=== PATIENT | female | born 1945 | race Caucasian/White ===

== ENCOUNTER 2017-01-18 17:53 | Emergency (ER) | payer MEDICARE | END 2017-01-18 18:58 | disposition left against medical advice (07) | LOC: JP.ED 17:53 | DX: Z53.21 Procedure and treatment not carried out due to patient leaving prior to being seen by health care provider (principal) | CPT/HCPCS: 99281 ==

== ENCOUNTER 2017-01-19 06:10 | Emergency (ER) | payer MEDICARE ==
[2017-01-19 06:29] VITALS: BP 134/95
[2017-01-19] MEDS ORDERED: Sodium Chloride 0.9% 10 ML Syringe FLUSH PRN (07:16)
[2017-01-19] MEDS ORDERED: Ondansetron 4 MG/2 ML SDV IVPUSH ONE (07:18)
[2017-01-19] MEDS ORDERED: Lactated Ringers 1,000 ML IV ONE (07:18)
[2017-01-19] MEDS ORDERED: HYDROmorphone 0.5 MG/0.5 ML Syringe IVPUSH ONE (07:18)
--- NOTE | 2017-01-19 07:24 | EDM.PDOC ---
ED HPI GENERAL MEDICAL PROBLEM - General Chief Complaint: Gastrointestinal Problem Stated Complaint: RECTAL BLEEDING Time Seen by Provider: 01/19/17 07:05 Source of Information: Reports: Patient, RN Notes Reviewed History Limitations: Reports: No Limitations - History of Present Illness INITIAL COMMENTS - FREE TEXT/NARRATIVE: 71-year-old female presents emergency department today with complaint of bright red blood per stool she states this is been going on for about 24 hours does pass dark clots as well as bright red blood in the stool has felt lightheaded like is going to pass out, states she had a colonoscopy about 4 years ago was told was unremarkable does have a history of hemorrhoids abd Pain Score (Numeric/FACES): 6 - Related Data Allergies Allergy/AdvReac Type Severity Reaction Status Date / Time Iodinated Contrast- Oral and Allergy Intermediate Rash Verified 01/19/17 06:34 IV Dye [Iodinated Contrast Media - IV Dye] simvastatin Allergy Confusion Verified 01/19/17 06:34 Home Meds: Home Meds Escitalopram [Lexapro] 20 mg PO DAILY 01/06/13 [History] Esomeprazole [NexIUM] 40 mg PO DAILY PRN 01/06/13 [History] Fluticasone/Salmeterol [Advair 100-50 Diskus] 1 puff INH DAILY 01/06/13 [History ] Lisinopril [Prinivil] 10 mg PO DAILY 01/06/13 [History] Multivitamin [Multiple Vitamins] 1 tab PO DAILY 01/06/13 [History] Pramipexole [Mirapex] 2 mg PO BEDTIME 01/06/13 [History] traZODone 200 mg PO BEDTIME 01/06/13 [History] Aspirin [Halfprin] 81 mg PO DAILY 09/13/14 [History] traMADol [Ultram] 100 mg PO BID 10/26/15 [History] Doxepin HCl [Doxepin] 10 mg PO BEDTIME 01/19/17 [History] Vitamin A [Vitamin A] 8,000 unit PO DAILY 01/19/17 [History] Past Medical History HEENT History: Reports: Impaired Vision Cardiovascular History: Reports: High Cholesterol, Hypertension, SOB on Exertion Other Cardiovascular History: states she has had surface blood clots and was told not to worry about them Respiratory History: Reports: Bronchitis, Recurrent, COPD, Pneumonia, Recurrent , Sleep Apnea, SOB Gastrointestinal History: Reports: GERD, Irritable Bowel Syndrome [place] History: Reports: Musculoskeletal History: Reports: Back Pain, Chronic, Osteoarthritis Other Musculoskeletal History: siatic pain. Sciatic injection by Dr. Myrtle Langston [facility] 10 days ago. glut. max problems Other Neuro History: Restless leg syndrome Psychiatric History: Reports: Anxiety, Depression Oncologic (Cancer) History: Reports: Squamous Cell Carcinoma, Uterine - Infectious Disease History Infectious Disease History: Reports: Chicken Pox, Measles, Mumps - Past Surgical History HEENT Surgical History: Reports: Adenoidectomy, Tonsillectomy GI Surgical History: Reports: Appendectomy, Cholecystectomy, Colonoscopy Female Surgical History: Reports: Hysterectomy, Oophorectomy Neurological Surgical History: Reports: Lumbar Spine Social & Family History - Family History Family Medical History: Noncontributory - Tobacco Use Smoking Status *Q: Current Every Day Smoker Years of Tobacco use: 55 Packs/Tins Daily: 1.5 Used Tobacco, but Quit: No Month Tobacco Last Used: may Second Hand Smoke Exposure: Yes - Caffeine Use Caffeine Use: Reports: Coffee - Alcohol Use Days Per Week of Alcohol Use: 1 Number of Drinks Per Day: 2 Total Drinks Per Week: 2 - Recreational Drug Use Recreational Drug Use: No Drug Use in Last 12 Months: No - Living Situation & Occupation Living situation: Reports: Alone Occupation: Employed ED ROS GENERAL - Review of Systems Review Of Systems: See Below Constitutional: Reports: Weakness. Denies: Fever, Chills HEENT: Reports: No Symptoms Respiratory: Reports: No Symptoms Cardiovascular: Reports: No Symptoms GI/Abdominal: Reports: Abdominal Pain, Bloody Stool, Nausea, Vomiting. Denies: Hematemesis : Reports: No Symptoms Musculoskeletal: Reports: No Symptoms Skin: Reports: No Symptoms Neurological: Reports: No Symptoms ED EXAM, GI/ABD - Physical Exam Exam: See Below Exam Limited By: No Limitations General Appearance: Alert, WD/WN, No Apparent Distress Head: Atraumatic, Normocephalic Neck: Normal Inspection, Supple, Non-Tender, Full Range of Motion Respiratory/Chest: No Respiratory Distress, Lungs Clear, Normal Breath Sounds, No Accessory Muscle Use Cardiovascular: Regular Rate, Rhythm, No Murmur GI/Abdominal Exam: Normal Bowel Sounds, Soft, Non-Tender, No Organomegaly, No Distention, No Abnormal Bruit Rectal (Female) Exam: Normal Exam, Bloody Stool, Hemorrhoids. No: Mass, Perirectal Abscess Course - Vital Signs Last Recorded V/S: Last Vital Signs Temp 98.8 F 01/19/17 06:27 Pulse 106 H 01/19/17 06:27 Resp 18 01/19/17 06:27 BP 134/95 H 01/19/17 06:27 Pulse Ox 94 L 01/19/17 06:27 - Orders/Labs/Meds Orders: Active Orders 24 hr Category Date Time Status Peripheral IV Care [RC] . DIRECTED Care 01/19/17 07:17 Active RED BLOOD CELLS LP [BBK] Stat Lab 01/19/17 07:32 Results TYPE AND SCREEN [BBK] Stat Lab 01/19/17 07:32 Results Sodium Chloride 0.9% [Saline Flush] Med 01/19/17 07:16 Active 10 ml FLUSH ASDIRECTED PRN Peripheral IV Insertion Adult [OM.PC] Routine Oth 01/19/17 07:18 Ordered Peripheral IV Insertion Adult [OM.PC] Urgent Oth 01/19/17 07:16 Ordered Medication Orders Sodium Chloride (Saline Flush) 10 ml FLUSH ASDIRECTED PRN PRN Reason: Keep Vein Open Labs: Laboratory Tests 01/19/17 01/19/17 01/19/17 Range/Units 07:32 07:32 07:32 WBC 11.7 H (4.5-11.0) K/uL RBC 5.24 (3.30-5.50) M/uL Hgb 16.5 H D (12.0-15.0) g/dL Hct 48.7 H (36.0-48.0) % MCV 93 (80-98) fL MCH 32 H (27-31) pg MCHC 34 (32-36) % Plt Count 207 (150-400) K/uL Neut % (Auto) 74 H (36-66) % Lymph % (Auto) 18 L (24-44) % [place] % (Auto) 7 H (2-6) % Eos % (Auto) 1 L (2-4) % Baso % (Auto) 0 (0-1) % PT 11.7 (9.5-12.0) sec INR 1.09 (0.80-1.20) Sodium 136 L (140-148) mmol/L Potassium 3.7 (3.6-5.2) mmol/L Chloride 100 (100-108) mmol/L Carbon Dioxide 27 (21-32) mmol/L Anion Gap 12.7 (5.0-14.0) mmol/L BUN 11 (7-18) mg/dL Creatinine 0.7 (0.6-1.0) mg/dL Est Cr Clr Drug Dosing 63.65 mL/min Estimated GFR (MDRD) > 60 (>60) Glucose 135 H (74-106) mg/dL Calcium 8.7 (8.5-10.1) mg/dL Total Bilirubin 0.6 D (0.2-1.0) mg/dL AST 24 (15-37) U/L ALT 31 (12-78) U/L Alkaline Phosphatase 56 (46-116) U/L Total Protein 7.1 (6.4-8.2) g/dL Albumin 3.5 (3.4-5.0) g/dL Globulin 3.6 H (2.3-3.5) g/dL Albumin/Globulin Ratio 1.0 L (1.2-2.2) Blood Type Gel Antibody Screen Crossmatch 01/19/17 Range/Units 07:32 WBC (4.5-11.0) K/uL RBC (3.30-5.50) M/uL Hgb (12.0-15.0) g/dL Hct (36.0-48.0) % MCV (80-98) fL MCH (27-31) pg MCHC (32-36) % Plt Count (150-400) K/uL Neut % (Auto) (36-66) % Lymph % (Auto) (24-44) % [place] % (Auto) (2-6) % Eos % (Auto) (2-4) % Baso % (Auto) (0-1) % PT (9.5-12.0) sec INR (0.80-1.20) Sodium (140-148) mmol/L Potassium (3.6-5.2) mmol/L Chloride (100-108) mmol/L Carbon Dioxide (21-32) mmol/L Anion Gap (5.0-14.0) mmol/L BUN (7-18) mg/dL Creatinine (0.6-1.0) mg/dL Est Cr Clr Drug Dosing mL/min Estimated GFR (MDRD) (>60) Glucose (74-106) mg/dL Calcium (8.5-10.1) mg/dL Total Bilirubin (0.2-1.0) mg/dL AST (15-37) U/L ALT (12-78) U/L Alkaline Phosphatase (46-116) U/L Total Protein (6.4-8.2) g/dL Albumin (3.4-5.0) g/dL Globulin (2.3-3.5) g/dL Albumin/Globulin Ratio (1.2-2.2) Blood Type O POSITIVE Gel Antibody Screen Negative Crossmatch See Detail Meds: Medications Generic Name Dose Route Start Last Admin Trade Name Freq PRN Reason Stop Dose Admin Sodium Chloride 10 ml 01/19/17 07:16 Saline Flush FLUSH ASDIRECTED PRN Keep Vein Open Discontinued Medications Generic Name Dose Route Start Last Admin Trade Name Freq PRN Reason Stop Dose Admin Hydromorphone HCl 0.5 mg 01/19/17 07:18 01/19/17 07:43 Dilaudid IVPUSH 01/19/17 07:19 0.5 mg ONETIME ONE Administration Lactated Ringer's 1,000 mls @ 999 mls/hr 01/19/17 07:18 01/19/17 07:38 Ringers, Lactated IV 01/19/17 08:18 999 mls/hr BOLUS ONE Administration Ondansetron HCl 4 mg 01/19/17 07:18 01/19/17 07:39 Zofran IVPUSH 01/19/17 07:19 4 mg ONETIME ONE Administration Departure - Departure Time of Disposition: 08:57 Disposition: Home, Self-Care 01 Condition: Good Clinical Impression: Blood in stool - Discharge Information Referrals: PCP,None [Primary Care Provider] - Forms: ED Department Discharge Additional Instructions: Please report to the outpatient surgery center for plan colonoscopy and EGD on of this week with Dr. Padilla please call return to the emergency department with development of new or worsening symptoms - My Orders Last 24 Hours: My Active Orders 01/19/17 07:16 Sodium Chloride 0.9% [Saline Flush] 10 ml FLUSH ASDIRECTED PRN Peripheral IV Insertion Adult [OM.PC] Urgent 01/19/17 07:17 Peripheral IV Care [RC] . DIRECTED 01/19/17 07:18 Peripheral IV Insertion Adult [OM.PC] Routine 01/19/17 07:32 RED BLOOD CELLS LP [BBK] Stat TYPE AND SCREEN [BBK] Stat - Assessment/Plan Last 24 Hours: My Active Orders 01/19/17 07:16 Sodium Chloride 0.9% [Saline Flush] 10 ml FLUSH ASDIRECTED PRN Peripheral IV Insertion Adult [OM.PC] Urgent 01/19/17 07:17 Peripheral IV Care [RC] . DIRECTED 01/19/17 07:18 Peripheral IV Insertion Adult [OM.PC] Routine 01/19/17 07:32 RED BLOOD CELLS LP [BBK] Stat TYPE AND SCREEN [BBK] Stat Plan: Assessment Acuity = acute Site and laterality = bright red blood in stool comp came patient with known history of dyslipidemia, hypertension and COPD Etiology = unknown etiology Manifestations = dizziness now resolved Location of injury = Home Lab values = WBC elevated 11.7 consistent leukocytosis, hemoglobin stable 16.5 Plan Called and discussed the case with general surgery Dr. Padilla he agreed to do colonoscopy and EGD this week she is set up for I gave her the option of hospital admission versus outpatient treatment she elected to outpatient, she will return to the emergency department with any development of new symptoms colonoscopy prep provided Patient was in agreement with the plan all questions were answered, they were instructed to return to the emergency department or call for worsening symptoms. This note was dictated using [employer] voice recognition software please call with any questions.
== END 2017-01-19 09:31 | disposition home or self-care (01) ==
LOC: JP.ED 06:10
DX: K92.1 Melena (principal); I10 Essential (primary) hypertension; E78.00 Pure hypercholesterolemia, unspecified; J44.9 Chronic obstructive pulmonary disease, unspecified; K21.9 Gastro-esophageal reflux disease without esophagitis; M19.90 Unspecified osteoarthritis, unspecified site; F32.9 Major depressive disorder, single episode, unspecified; F17.210 Nicotine dependence, cigarettes, uncomplicated; Z85.828 Personal history of other malignant neoplasm of skin; Z90.49 Acquired absence of other specified parts of digestive tract; Z98.890 Other specified postprocedural states; Z90.710 Acquired absence of both cervix and uterus; Z85.42 Personal history of malignant neoplasm of other parts of uterus; Z79.82 Long term (current) use of aspirin; Z79.899 Other long term (current) drug therapy; Z88.8 Allergy status to other drugs, medicaments and biological substances; Z91.041 Radiographic dye allergy status
CPT/HCPCS: 36415; 80053; 85025; 85610; 86850; 86900; 86901; 86920; 86922; 96361; 96374; 96375; 99284; J1170; J2405; J7120

== ENCOUNTER 2017-01-21 14:58 | Emergency (ER) | payer MEDICARE ==
[2017-01-21 15:23] VITALS: BP 136/66
[2017-01-21] MEDS: Sodium Chloride 0.9% 10 ML Syringe FLUSH PRN ×2 (17:00→17:14)
[2017-01-21] MEDS ORDERED: Sodium Chloride 0.9% 80 ML IV SCH (17:00)
[2017-01-21] MEDS ORDERED: Iopamidol 612 MG/ML 100 ML Bottle IV SCH (17:00)
--- NOTE | 2017-01-21 18:26 | EDM.PDOC ---
ED HPI GENERAL MEDICAL PROBLEM - General Chief Complaint: Gastrointestinal Problem Stated Complaint: NO BM;HAD BLEEDING Time Seen by Provider: 01/21/17 15:30 Source of Information: Reports: Patient, Family History Limitations: Reports: No Limitations - History of Present Illness INITIAL COMMENTS - FREE TEXT/NARRATIVE: 71-year-old female who has had persistent rectal bleeding for the past several days. She is scheduled for a colonoscopy in 2 days from now. She had a colonoscopy 4 years ago which was normal. She had a normal hemoglobin at 16 2 days ago. She continues to have abdominal discomfort, a bloated sensation, and intermittent pain. She has not had a bowel movement for one week and it is worrying her, however she has not eaten anything for the past 4 days. Location: Reports: Abdomen Severity: Moderate Associated Symptoms: Reports: Loss of Appetite. Denies: Cough, Diaphoresis, Malaise, Nausea/Vomiting, Shortness of Breath - Related Data Allergies Allergy/AdvReac Type Severity Reaction Status Date / Time red dye Allergy Unknown Hives Verified 01/21/17 12:04 pravastatin Allergy Other Verified 01/21/17 12:04 simvastatin Allergy Confusion Verified 01/19/17 06:34 Home Meds: Home Meds Escitalopram [Lexapro] 20 mg PO DAILY 01/06/13 [History] Esomeprazole [NexIUM] 40 mg PO DAILY 01/06/13 [History] Fluticasone/Salmeterol [Advair 100-50 Diskus] 1 puff INH BID 01/06/13 [History] Lisinopril [Prinivil] 10 mg PO DAILY 01/06/13 [History] Multivitamin [Multiple Vitamins] 1 tab PO DAILY 01/06/13 [History] Pramipexole [Mirapex] 1 mg PO BEDTIME 01/06/13 [History] traZODone 200 mg PO BEDTIME 01/06/13 [History] Aspirin [Halfprin] 81 mg PO DAILY 09/13/14 [History] traMADol [Ultram] 100 mg PO BID 10/26/15 [History] Doxepin HCl [Doxepin] 10 mg PO BEDTIME 01/19/17 [History] Vitamin A [Vitamin A] 8,000 unit PO DAILY 01/19/17 [History] Albuterol Sulfate [Proair Hfa] 1 - 2 puff IH QID PRN 01/21/17 [History] Albuterol [Proventil Neb Soln] 3 ml IH QID PRN 01/21/17 [History] Alendronate [Fosamax] 35 mg PO WEEKLY 01/21/17 [History] Cholecalciferol (Vitamin D3) [Vitamin D3] 2,000 unit PO DAILY 01/21/17 [History] Rosuvastatin [Crestor] 5 mg PO DAILY 01/21/17 [History] Past Medical History HEENT History: Reports: Impaired Vision Cardiovascular History: Reports: High Cholesterol, Hypertension, SOB on Exertion Other Cardiovascular History: states she has had surface blood clots and was told not to worry about them Respiratory History: Reports: Bronchitis, Recurrent, COPD, Pneumonia, Recurrent , Sleep Apnea, SOB Gastrointestinal History: Reports: GERD, Irritable Bowel Syndrome [employer] History: Reports: Musculoskeletal History: Reports: Back Pain, Chronic, Osteoarthritis Other Musculoskeletal History: siatic pain. Sciatic injection by Dr. Myrtle Langston [facility] 10 days ago. glut. max problems Other Neuro History: Restless leg syndrome Psychiatric History: Reports: Anxiety, Depression Oncologic (Cancer) History: Reports: Squamous Cell Carcinoma, Uterine - Infectious Disease History Infectious Disease History: Reports: Chicken Pox, Measles, Mumps - Past Surgical History HEENT Surgical History: Reports: Adenoidectomy, Tonsillectomy GI Surgical History: Reports: Appendectomy, Cholecystectomy, Colonoscopy Female Surgical History: Reports: Hysterectomy, Oophorectomy Neurological Surgical History: Reports: Lumbar Spine Social & Family History - Family History Family Medical History: Noncontributory - Tobacco Use Smoking Status *Q: Current Every Day Smoker Years of Tobacco use: 55 Packs/Tins Daily: 1.5 Used Tobacco, but Quit: No Month Tobacco Last Used: may Second Hand Smoke Exposure: Yes - Caffeine Use Caffeine Use: Reports: Coffee - Alcohol Use Days Per Week of Alcohol Use: 1 Number of Drinks Per Day: 2 Total Drinks Per Week: 2 - Recreational Drug Use Recreational Drug Use: No Drug Use in Last 12 Months: No - Living Situation & Occupation Living situation: Reports: Alone Occupation: Employed ED ROS GENERAL - Review of Systems Review Of Systems: See Below Constitutional: Denies: Fever, Chills HEENT: Reports: No Symptoms Respiratory: Denies: Shortness of Breath Cardiovascular: Denies: Chest Pain GI/Abdominal: Reports: Abdominal Pain, Bloody Stool, Decreased Appetite, Hematochezia : Reports: No Symptoms Skin: Reports: No Symptoms Neurological: Reports: No Symptoms Psychiatric: Reports: No Symptoms ED EXAM, GI/ABD - Physical Exam Exam: See Below Exam Limited By: No Limitations General Appearance: Alert, No Apparent Distress Eyes: Bilateral: Normal Appearance (No jaundice) Respiratory/Chest: No Respiratory Distress, Lungs Clear Cardiovascular: Regular Rate, Rhythm GI/Abdominal Exam: Normal Bowel Sounds, Soft, Tender (Some tenderness to palpation across the periumbilical area but no guarding or rebound or focal tenderness) Rectal (Female) Exam: Bloody Stool, Other (Digital exam revealed no significant rectal stool. There was soft maroon stool present, no digital palpable masses.) . No: Fecal Impaction, Mass Course - Vital Signs Last Recorded V/S: Last Vital Signs Temp 98.0 F 01/21/17 15:46 Pulse 96 01/21/17 15:46 Resp 15 01/21/17 15:46 BP 136/66 01/21/17 15:46 Pulse Ox 90 L 01/21/17 15:46 - Orders/Labs/Meds Labs: Laboratory Tests 01/21/17 Range/Units 16:33 WBC 8.1 (4.5-11.0) K/uL RBC 4.68 (3.30-5.50) M/uL Hgb 14.8 (12.0-15.0) g/dL Hct 44.1 (36.0-48.0) % MCV 94 (80-98) fL MCH 32 H (27-31) pg MCHC 34 (32-36) % Plt Count 214 (150-400) K/uL Neut % (Auto) 57 (36-66) % Lymph % (Auto) 33 (24-44) % [place] % (Auto) 8 H (2-6) % Eos % (Auto) 3 (2-4) % Baso % (Auto) 1 (0-1) % Meds: Medications Discontinued Medications Generic Name Dose Route Start Last Admin Trade Name Freq PRN Reason Stop Dose Admin Sodium Chloride 80 mls @ 3 mls/sec 01/21/17 17:00 01/21/17 17:14 Normal Saline IV 3 mls/sec ASDIRECTED FRANCIA Administration Iopamidol 92 ml 01/21/17 17:00 01/21/17 17:14 Isovue-300 (61%) IV 92 ml . DIRECTED FRANCIA Administration Sodium Chloride 10 ml 01/21/17 16:56 01/21/17 17:14 Saline Flush FLUSH 10 ml ASDIRECTED PRN Administration Keep Vein Open - Re-Assessments/Exams Free Text/Narrative Re-Assessment/Exam: 01/21/17 18:26 CBC was rechecked her hemoglobin is now 14. We did do a CT scan of the abdomen and pelvis with IV contrast and there was no significant findings. She is to complete the prep as planned and get her colonoscopy on which is about 36 hours from now. She'll return sooner if worsening or concerns. Departure - Departure Time of Disposition: 18:39 Disposition: Home, Self-Care 01 Condition: Good Clinical Impression: Abdominal pain, Rectal bleed - Discharge Information Instructions: Abdominal Pain, Adult, [id number] Referrals: PCP,None [Primary Care Provider] - Forms: ED Department Discharge Care Plan Goals: Finish your bowel preparation for your colonoscopy as planned. Return sooner if significantly increased bleeding or other concerns.
== END 2017-01-21 18:38 | disposition home or self-care (01) ==
LOC: JP.ED 14:58
DX: K62.5 Hemorrhage of anus and rectum (principal); R10.9 Unspecified abdominal pain; I10 Essential (primary) hypertension; E78.00 Pure hypercholesterolemia, unspecified; J44.9 Chronic obstructive pulmonary disease, unspecified; G47.30 Sleep apnea, unspecified; K21.9 Gastro-esophageal reflux disease without esophagitis; M19.90 Unspecified osteoarthritis, unspecified site; F32.9 Major depressive disorder, single episode, unspecified; F17.210 Nicotine dependence, cigarettes, uncomplicated; Z85.828 Personal history of other malignant neoplasm of skin; Z85.42 Personal history of malignant neoplasm of other parts of uterus; Z90.49 Acquired absence of other specified parts of digestive tract; Z98.890 Other specified postprocedural states; Z90.710 Acquired absence of both cervix and uterus; Z79.899 Other long term (current) drug therapy; Z88.8 Allergy status to other drugs, medicaments and biological substances; Z91.048 Other nonmedicinal substance allergy status
CPT/HCPCS: 36415; 74177; 85025; 99285; J7030; J7050; Q9967; 99284

== ENCOUNTER 2017-01-23 08:34 | Day surgery (SDC) | payer MEDICARE ==
[2017-01-23] MEDS ORDERED: Sodium Chloride 0.9% 1,000 ML IV SCH (09:00)
[2017-01-23] MEDS ORDERED: fentaNYL 100 MCG/2 ML SDV ONE (09:25)
[2017-01-23] MEDS ORDERED: Midazolam 1 MG/ML 2 ML SDV ONE (09:25)
[2017-01-23] MEDS ORDERED: Propofol 200 MG/20 ML SDV ONE (09:25)
[2017-01-23 11:16] VITALS: BP 120/77
--- NOTE | 2017-01-23 12:22 | OR ---
DATE OF PROCEDURE: 01/23/2017 PROCEDURE: 1. EGD. 2. Colonoscopy. FINDINGS: 1. Very mild gastritis (biopsied using cold biopsy forceps). 2. Inflammation of the GE junction, consistent with reflux disease (biopsied in all 4 quadrants using cold biopsy forceps). 3. Diverticulosis, mild, limited to sigmoid colon. 4. No etiology of the blood but most likely this was diverticular bleeding. RISKS: Risks, benefits, alternatives, limitations including, but not limited to infection, bleeding, and perforation were explained to the patient and wished to proceed. PREOPERATIVE DIAGNOSIS: Gastrointestinal bleeding. POSTOPERATIVE DIAGNOSIS: Gastrointestinal bleeding. PROCEDURE IN DETAIL: The patient was placed in left lateral decubitus position. The EGD scope was introduced, advanced atraumatically to the 2nd part of the duodenum. No ulceration was noted. The scope was brought back into the stomach and the patient had very mild gastritis, with the antrum was biopsied for H. pylori evaluation and the etiology of the gastritis. On retroflex, there was not a hiatal hernia. No other abnormalities in the stomach. The GE junction showed inflammation consistent with reflux disease. This was biopsied multiple times using cold biopsy forceps. The esophagus was normal. Digital rectal exam was performed, showed mild external hemorrhoids. The scope was introduced, advanced atraumatically to the ileocecal valve. The scope was brought back to the ascending, transverse, descending colon, and retroflexed. No polyps. No masses. No old or new blood. The patient had diverticulosis which was described as mild. The patient tolerated the procedure well. Jose Eduardo Padilla MD /[id number]
== END 2017-01-23 11:24 | disposition home or self-care (01) ==
LOC: JP.SDS 08:34
PROVIDERS: ATTEND Surgery
DX: K29.50 Unspecified chronic gastritis without bleeding (principal); K57.30 Diverticulosis of large intestine without perforation or abscess without bleeding; K64.4 Residual hemorrhoidal skin tags; K21.9 Gastro-esophageal reflux disease without esophagitis; F32.9 Major depressive disorder, single episode, unspecified; J44.9 Chronic obstructive pulmonary disease, unspecified; I10 Essential (primary) hypertension; G47.30 Sleep apnea, unspecified; E78.00 Pure hypercholesterolemia, unspecified; Z90.49 Acquired absence of other specified parts of digestive tract; F17.210 Nicotine dependence, cigarettes, uncomplicated; Z88.8 Allergy status to other drugs, medicaments and biological substances; Z98.890 Other specified postprocedural states; Z90.710 Acquired absence of both cervix and uterus; F41.9 Anxiety disorder, unspecified
CPT/HCPCS: 43239; 45378; 88305; J2250; J2704; J3010; J7040

== ENCOUNTER 2017-08-20 15:07 | Emergency (ER) | payer MEDICARE ==
[2017-08-20 15:22] VITALS: BP 103/75
--- NOTE | 2017-08-20 16:15 | EDM.PDOC ---
ED HPI GENERAL MEDICAL PROBLEM - General Chief Complaint: Back Pain or Injury Stated Complaint: HAVING ALOT OF PAIN Time Seen by Provider: 08/20/17 15:50 Source of Information: Reports: Patient History Limitations: Reports: No Limitations - History of Present Illness INITIAL COMMENTS - FREE TEXT/NARRATIVE: 72-year-old female with chronic back pain, received an injection week ago and it did not work like it typically does. She has sharp pains radiating from the lower back to the right sacroiliac area. It's making it difficult to sleep. No lower extremity neuropathy, no fevers or chills or redness at the injection site. Severity: Moderate Worsens with: Reports: Movement Associated Symptoms: Reports: No Other Symptoms Right Lower Back Pain Score (Numeric/FACES): 9 - Related Data Allergies Allergy/AdvReac Type Severity Reaction Status Date / Time pravastatin Allergy Other Verified 08/20/17 15:34 simvastatin Allergy Confusion Verified 08/20/17 15:34 Home Meds: Home Meds Escitalopram [Lexapro] 20 mg PO DAILY 01/06/13 [History] Fluticasone/Salmeterol [Advair 100-50 Diskus] 1 puff INH BID 01/06/13 [History] Lisinopril [Prinivil] 10 mg PO DAILY 01/06/13 [History] Multivitamin [Multiple Vitamins] 1 tab PO DAILY 01/06/13 [History] Pramipexole [Mirapex] 1 mg PO BEDTIME 01/06/13 [History] traZODone 200 mg PO BEDTIME 01/06/13 [History] Aspirin [Halfprin] 81 mg PO DAILY 09/13/14 [History] traMADol [Ultram] 100 mg PO BID 10/26/15 [History] Doxepin HCl [Doxepin] 10 mg PO BEDTIME 01/19/17 [History] Vitamin A 8,000 unit PO DAILY 01/19/17 [History] Albuterol Sulfate [Proair Hfa] 1 - 2 puff IH QID PRN 01/21/17 [History] Albuterol [Proventil Neb Soln] 3 ml IH QID PRN 01/21/17 [History] Alendronate [Fosamax] 35 mg PO WEEKLY 01/21/17 [History] Cholecalciferol (Vitamin D3) [Vitamin D3] 2,000 unit PO DAILY 01/21/17 [History] Rosuvastatin [Crestor] 5 mg PO ASDIRECTED 01/21/17 [History] Past Medical History HEENT History: Reports: Impaired Vision Cardiovascular History: Reports: High Cholesterol, Hypertension, SOB on Exertion Other Cardiovascular History: states she has had surface blood clots and was told not to worry about them Respiratory History: Reports: Bronchitis, Recurrent, COPD, Pneumonia, Recurrent , Sleep Apnea, SOB Gastrointestinal History: Reports: Colon Polyp, GERD, Irritable Bowel Syndrome Genitourinary History: Reports: None 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 Sciatic injection by Dr. Myrtle Langston [facility] 10 days ago. glut. max problems Neurological History: Reports: Migraines, Other (See Below) Other Neuro History: Restless leg syndrome Psychiatric History: Reports: Anxiety, Depression Oncologic (Cancer) History: Reports: Squamous Cell Carcinoma, Uterine - Infectious Disease History Infectious Disease History: Reports: Chicken Pox - Past Surgical History Head Surgeries/Procedures: Reports: None HEENT Surgical History: Reports: Adenoidectomy, Tonsillectomy Cardiovascular Surgical History: Reports: None Respiratory Surgical History: Reports: None GI Surgical History: Reports: Appendectomy, Cholecystectomy, Colonoscopy Female Surgical History: Reports: Hysterectomy, Oophorectomy Neurological Surgical History: Reports: Lumbar Spine Musculoskeletal Surgical History: Reports: None Oncologic Surgical History: Reports: None Dermatological Surgical History: Reports: Skin Biopsy Social & Family History - Family History Family Medical History: Noncontributory - Tobacco Use Smoking Status *Q: Current Every Day Smoker Years of Tobacco use: 45 Packs/Tins Daily: 1.5 - Caffeine Use Caffeine Use: Reports: Coffee - Recreational Drug Use Recreational Drug Use: No - Living Situation & Occupation Living situation: Reports: Alone Occupation: Employed ED ROS GENERAL - Review of Systems Review Of Systems: See Below Constitutional: Denies: Fever, Chills Respiratory: Denies: Shortness of Breath Cardiovascular: Denies: Chest Pain GI/Abdominal: Denies: Nausea, Vomiting Neurological: Denies: Paresthesia ED EXAM,LOWER BACK PAIN/INJURY - Physical Exam Exam: See Below Exam Limited By: No Limitations General Appearance: Alert, No Apparent Distress Respiratory/Chest: No Respiratory Distress, Lungs Clear Cardiovascular: Regular Rate, Rhythm Back Exam: Paraspinal Tenderness (Very uncomfortable to palpation over the right paralumbar area, no asymmetry, redness or bruising is seen. Some increased pain with forward bending at the waist and rotation) Course - Vital Signs Last Recorded V/S: Last Vital Signs Temp 97.6 F 08/20/17 15:24 Pulse 92 08/20/17 15:24 Resp 16 08/20/17 15:24 BP 103/75 08/20/17 15:24 Pulse Ox 92 L 08/20/17 15:24 - Re-Assessments/Exams Free Text/Narrative Re-Assessment/Exam: 08/21/17 08:49 She has another appointment coming up in 6 days for a recheck. She'll be placed on 50 mg of prednisone daily for the next 3-6 days and was given 6 hydrocodone to use for extra pain control. Encouraged to increase activity as tolerated and return if worsening. Departure - Departure Time of Disposition: 16:25 Disposition: Home, Self-Care 01 Condition: Good Clinical Impression: Acute exacerbation of chronic low back pain - Discharge Information Instructions: Back Pain, Adult, [id number] Referrals: James Simmons MD [Primary Care Provider] - Forms: ED Department Discharge Care Plan Goals: Continue your current medications, increase activity as tolerated and follow up as scheduled. Take 5 pills of prednisone with food daily for the next 3-6 days along with Vicodin for extra pain control as prescribed. Return anytime if worsening or concerns.
== END 2017-08-20 16:25 | disposition home or self-care (01) ==
LOC: JP.ED 15:07
DX: G89.29 Other chronic pain (principal); M54.5 Low back pain; Z88.8 Allergy status to other drugs, medicaments and biological substances; Z79.899 Other long term (current) drug therapy; I10 Essential (primary) hypertension; F17.210 Nicotine dependence, cigarettes, uncomplicated
CPT/HCPCS: 99283

== ENCOUNTER 2017-10-14 13:17 | Inpatient (IN) | payer MEDICARE ==
[2017-10-14] MEDS ORDERED: Albuterol/Ipratropium 3.0-0.5 MG/3 ML Neb Soln NEB ONE (13:36)
[2017-10-14] MEDS ORDERED: Acetaminophen 500 MG Tab PO PRN (13:44)
[2017-10-14] MEDS ORDERED: Lactated Ringers 1,000 ML IV SCH (13:45)
[2017-10-14] MEDS ORDERED: Azithromycin 500 MG in Sodium Chloride 0.9% 250 ML IV SCH ×2 (13:45→14:00)
[2017-10-14] MEDS ORDERED: cefTRIAXone 2 GM in Sodium Chloride 0.9% 50 ML IV SCH ×4 (13:45)
--- NOTE | 2017-10-14 13:48 | EDM.PDOC ---
ED HPI GENERAL MEDICAL PROBLEM - General Chief Complaint: Respiratory Problem Stated Complaint: TROUBLE BREATHING, HEADACHE Time Seen by Provider: 10/14/17 13:24 Source of Information: Reports: Patient History Limitations: Reports: No Limitations - History of Present Illness INITIAL COMMENTS - FREE TEXT/NARRATIVE: Hx of COPD, smoker- not feeling well for the last 3 days; she has been feeling punky. Cough, fever, shortness of breath. She has been using her albuterol at home, she is on oxygen 3 L at HS. Onset: Gradual (3 days) Quality: Reports: Pressure Severity: Moderate Improves with: Reports: Rest. Denies: None Worsens with: Reports: Movement. 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 Treatments - Related Data Allergies Allergy/AdvReac Type Severity Reaction Status Date / Time pravastatin Allergy Other Verified 10/14/17 14:06 simvastatin Allergy Confusion Verified 10/14/17 14:06 Home Meds: Home Meds Escitalopram [Lexapro] 20 mg PO DAILY 01/06/13 [History] Fluticasone/Salmeterol [Advair 100-50 Diskus] 1 puff INH BID 01/06/13 [History] Lisinopril [Prinivil] 10 mg PO DAILY 01/06/13 [History] Multivitamin [Multiple Vitamins] 1 tab PO DAILY 01/06/13 [History] Pramipexole [Mirapex] 1 mg PO BEDTIME 01/06/13 [History] traZODone 200 mg PO BEDTIME 01/06/13 [History] Aspirin [Halfprin] 81 mg PO DAILY 09/13/14 [History] Vitamin A 8,000 unit PO DAILY 01/19/17 [History] Albuterol Sulfate [Proair Hfa] 1 - 2 puff IH QID PRN 01/21/17 [History] Albuterol [Proventil Neb Soln] 3 ml IH QID PRN 01/21/17 [History] Cholecalciferol (Vitamin D3) [Vitamin D3] 2,000 unit PO DAILY 01/21/17 [History] Rosuvastatin [Crestor] 5 mg PO BEDTIME 01/21/17 [History] oxyCODONE 1 tab PO Q4H PRN 07/03/18 [History] Past Medical History HEENT History: Reports: Impaired Vision Cardiovascular History: Reports: High Cholesterol, Hypertension, SOB on Exertion Other Cardiovascular History: states she has had surface blood clots and was told not to worry about them Respiratory History: Reports: Bronchitis, Recurrent, COPD, Pneumonia, Recurrent , Sleep Apnea, SOB Gastrointestinal History: Reports: Colon Polyp, GERD, Irritable Bowel Syndrome Genitourinary History: Reports: None [employer] History: Reports: , Spontaneous Musculoskeletal History: Reports: Back Pain, Chronic, Osteoarthritis Other Musculoskeletal History: siatic pain. Sciatic injection by Dr. Myrtle Langston, [place] 10 days ago. glut. max problems Neurological History: Reports: Migraines, Other (See Below) Other Neuro History: Restless leg syndrome Psychiatric History: Reports: Anxiety, Depression Oncologic (Cancer) History: Reports: Squamous Cell Carcinoma, Uterine - Infectious Disease History Infectious Disease History: Reports: Chicken Pox - Past Surgical History Head Surgeries/Procedures: Reports: None HEENT Surgical History: Reports: Adenoidectomy, Tonsillectomy Cardiovascular Surgical History: Reports: None Respiratory Surgical History: Reports: None GI Surgical History: Reports: Appendectomy, Cholecystectomy, Colonoscopy Female Surgical History: Reports: Hysterectomy, Oophorectomy Neurological Surgical History: Reports: Lumbar Spine Musculoskeletal Surgical History: Reports: None Oncologic Surgical History: Reports: None Dermatological Surgical History: Reports: Skin Biopsy Social & Family History - Family History Family Medical History: Noncontributory - Caffeine Use Caffeine Use: Reports: Coffee - Living Situation & Occupation Living situation: Reports: Alone Occupation: Employed ED ROS GENERAL - Review of Systems Review Of Systems: See Below Constitutional: Reports: Fever HEENT: Reports: Throat Pain Respiratory: Reports: Shortness of Breath, Pleuritic Chest Pain, Cough, Sputum Cardiovascular: Reports: No Symptoms. Denies: Chest Pain Endocrine: Reports: Fatigue GI/Abdominal: Reports: No Symptoms : Reports: No Symptoms Musculoskeletal: Reports: No Symptoms Skin: Reports: No Symptoms Neurological: Reports: Headache Psychiatric: Reports: No Symptoms Hematologic/Lymphatic: Reports: No Symptoms Immunologic: Reports: No Symptoms ED EXAM, GENERAL - Physical Exam Exam: See Below Exam Limited By: No Limitations General Appearance: Alert, Mild Distress Throat/Mouth: Normal Inspection, Normal Oropharynx, No Airway Compromise Head: Atraumatic, Normocephalic Neck: Normal Inspection, Full Range of Motion Respiratory/Chest: Decreased Breath Sounds, Rhonchi, Wheezing (exp) Cardiovascular: No Murmur, Tachycardia GI/Abdominal: Normal Bowel Sounds, Soft, Non-Tender Extremities: Normal Inspection, Normal Range of Motion, Non-Tender Neurological: Alert, Oriented, Normal Cognition Psychiatric: Normal Affect, Normal Mood Skin Exam: Warm, Dry, Intact Course - Vital Signs Last Recorded V/S: Last Vital Signs Temp 99.5 F 10/14/17 15:30 Pulse 100 10/14/17 15:30 Resp 20 10/14/17 15:30 BP 84/58 L 10/14/17 15:30 Pulse Ox 90 L 10/14/17 15:30 - Orders/Labs/Meds Orders: Active Orders 24 hr Category Date Time Status Chest 1V Frontal [CR] Stat Exams 10/14/17 13:44 Taken CULTURE BLOOD [BC] Urgent Lab 10/14/17 13:55 Received CULTURE BLOOD [BC] Urgent Lab 10/14/17 14:00 Received Blood Culture x2 Reflex Set [OM.PC] Urgent Oth 10/14/17 13:40 Ordered Medication Orders Acetaminophen (Tylenol) 650 mg PO Q4H PRN PRN Reason: Pain (Mild 1-3)/fever Albuterol (Proventil Neb Soln) 2.5 mg NEB Q4H PRN PRN Reason: Shortness Of Breath/wheezing Albuterol/Ipratropium (Duoneb 3.0-0.5 Mg/3 Ml) 3 ml NEB QIDRT FRANCIA Last Admin: 10/14/17 15:35 Dose: Not Given Aspirin (Halfprin) 81 mg PO DAILY [facility] Azithromycin (Zithromax) 500 mg PO DAILY [facility] Benzonatate (Tessalon Perles) 100 mg PO TID PRN PRN Reason: Cough Escitalopram Oxalate (Lexapro) 20 mg PO DAILY [facility] Guaifenesin/Codeine Phosphate (Robitussin Ac) 10 ml PO Q4H PRN PRN Reason: Cough Ceftriaxone Sodium 2 gm/ (Sodium Chloride) 50 mls @ 100 mls/hr IV Q24H [facility] Ibuprofen (Motrin) 600 mg PO Q6H PRN PRN Reason: Pain/Fever Lisinopril (Prinivil) 10 mg PO DAILY [facility] Magnesium Hydroxide (Milk Of Magnesia) 30 ml PO Q12H PRN PRN Reason: Constipation Methylprednisolone Sodium Succinate (Solu-Medrol) 62.5 mg IVPUSH ONETIME ONE Stop: 10/14/17 23:01 Nicotine (Habitrol) 21 mg TRDERM DAILY FRANCIA Non-Formulary Medication (Fluticasone/Salmeterol [Advair 100-50]) 1 puff INH BID FRANCIA Non-Formulary Medication (Pramipexole [Mirapex]) 1 mg PO BEDTIME FRANCIA Non-Formulary Medication (Rosuvastatin [Crestor]) 5 mg PO BEDTIME FRANCIA Non-Formulary Medication (Trazodone [Trazodone]) 200 mg PO BEDTIME FRANCIA Ondansetron HCl (Zofran Odt) 4 mg PO Q6H PRN PRN Reason: Nausea able to take PO Oxycodone HCl (Oxycodone) mg PO Q4H PRN PRN Reason: Pain Polyethylene Glycol (Miralax) 17 gm PO DAILY PRN PRN Reason: Constipation Prednisone (Prednisone) 20 mg PO BIDAC FRANCIA Senna/Docusate Sodium (Senna Plus) 1 tab PO BID PRN PRN Reason: Constipation Labs: Laboratory Tests 10/14/17 10/14/17 10/14/17 Range/Units 13:40 13:55 13:55 WBC 16.4 H (4.5-11.0) K/uL RBC 4.66 (3.30-5.50) M/uL Hgb 14.6 (12.0-15.0) g/dL Hct 43.8 (36.0-48.0) % MCV 94 (80-98) fL MCH 31 (27-31) pg MCHC 33 (32-36) % Plt Count 211 (150-400) K/uL Neut % (Auto) 86 H (36-66) % Lymph % (Auto) 7 L (24-44) % [place] % (Auto) 7 H (2-6) % Eos % (Auto) 0 L (2-4) % Baso % (Auto) 0 (0-1) % Sodium 135 L (140-148) mmol/L Potassium 4.1 (3.6-5.2) mmol/L Chloride 99 L (100-108) mmol/L Carbon Dioxide 26 (21-32) mmol/L Anion Gap 14.1 H (5.0-14.0) mmol/L BUN 5 L D (7-18) mg/dL Creatinine 0.7 (0.6-1.0) mg/dL Est Cr Clr Drug Dosing TNP Estimated GFR (MDRD) > 60 (>60) Glucose 178 H (74-106) mg/dL Lactic Acid 1.2 (0.4-2.0) mmol/L Calcium 8.8 (8.5-10.1) mg/dL Total Bilirubin 0.6 (0.2-1.0) mg/dL AST 37 (15-37) U/L ALT 127 H (12-78) U/L Alkaline Phosphatase 103 D (46-116) U/L Troponin I (0.000-0.056) ng/mL C-Reactive Protein 18.31 H (0.0-0.3) mg/dL Total Protein 7.2 (6.4-8.2) g/dL Albumin 3.1 L (3.4-5.0) g/dL Globulin 4.1 H (2.3-3.5) g/dL Albumin/Globulin Ratio 0.8 L (1.2-2.2) 10/14/17 Range/Units 14:21 WBC (4.5-11.0) K/uL RBC (3.30-5.50) M/uL Hgb (12.0-15.0) g/dL Hct (36.0-48.0) % MCV (80-98) fL MCH (27-31) pg MCHC (32-36) % Plt Count (150-400) K/uL Neut % (Auto) (36-66) % Lymph % (Auto) (24-44) % [place] % (Auto) (2-6) % Eos % (Auto) (2-4) % Baso % (Auto) (0-1) % Sodium (140-148) mmol/L Potassium (3.6-5.2) mmol/L Chloride (100-108) mmol/L Carbon Dioxide (21-32) mmol/L Anion Gap (5.0-14.0) mmol/L BUN (7-18) mg/dL Creatinine (0.6-1.0) mg/dL Est Cr Clr Drug Dosing Estimated GFR (MDRD) (>60) Glucose (74-106) mg/dL Lactic Acid (0.4-2.0) mmol/L Calcium (8.5-10.1) mg/dL Total Bilirubin (0.2-1.0) mg/dL AST (15-37) U/L ALT (12-78) U/L Alkaline Phosphatase (46-116) U/L Troponin I < 0.017 (0.000-0.056) ng/mL C-Reactive Protein (0.0-0.3) mg/dL Total Protein (6.4-8.2) g/dL Albumin (3.4-5.0) g/dL Globulin (2.3-3.5) g/dL Albumin/Globulin Ratio (1.2-2.2) Meds: Medications Generic Name Dose Route Start Last Admin Trade Name Freq PRN Reason Stop Dose Admin Acetaminophen 650 mg 10/14/17 15:28 Tylenol PO Q4H PRN Pain (Mild 1-3)/fever Albuterol 2.5 mg 10/14/17 15:28 Proventil Neb Soln NEB Q4H PRN Shortness Of Breath/wheezing Albuterol/Ipratropium 3 ml 10/14/17 15:00 10/14/17 15:35 Duoneb 3.0-0.5 Mg/3 Ml NEB Not Given QIDRT [facility] Aspirin 81 mg 10/15/17 09:00 Halfprin PO DAILY [facility] Azithromycin 500 mg 10/15/17 09:00 Zithromax PO DAILY [facility] Benzonatate 100 mg 10/14/17 15:28 Tessalon Perles PO TID PRN Cough Escitalopram Oxalate 20 mg 10/15/17 09:00 Lexapro PO DAILY [facility] Guaifenesin/Codeine Phosphate 10 ml 10/14/17 15:28 Robitussin Ac PO Q4H PRN Cough Ceftriaxone Sodium 2 gm/ 50 mls @ 100 mls/hr 10/15/17 14:00 Sodium Chloride IV Q24H [facility] Ibuprofen 600 mg 10/14/17 15:28 Motrin PO Q6H PRN Pain/Fever Lisinopril 10 mg 10/15/17 09:00 Prinivil PO DAILY [facility] Magnesium Hydroxide 30 ml 10/14/17 15:28 Milk Of Magnesia PO Q12H PRN Constipation Methylprednisolone Sodium Succinate 62.5 mg 10/14/17 23:00 Solu-Medrol IVPUSH 10/14/17 23:01 ONETIME ONE Nicotine 21 mg 10/14/17 15:28 Habitrol TRDERM DAILY FRANCIA Non-Formulary Medication 1 puff 10/14/17 21:00 Fluticasone/Salmeterol [Advair 100-50] INH BID FRANCIA Non-Formulary Medication 1 mg 10/14/17 21:00 Pramipexole [Mirapex] PO BEDTIME FRANCIA Non-Formulary Medication 5 mg 10/14/17 21:00 Rosuvastatin [Crestor] PO BEDTIME FRANCIA Non-Formulary Medication 200 mg 10/14/17 21:00 Trazodone [Trazodone] PO BEDTIME FRANCIA Ondansetron HCl 4 mg 10/14/17 15:28 Zofran Odt PO Q6H PRN Nausea able to take PO Oxycodone HCl mg 10/14/17 15:28 Oxycodone PO Q4H PRN Pain Polyethylene Glycol 17 gm 10/14/17 15:28 Miralax PO DAILY PRN Constipation Prednisone 20 mg 10/15/17 08:00 Prednisone PO BIDAC FRANCIA Senna/Docusate Sodium 1 tab 10/14/17 15:28 Senna Plus PO BID PRN Constipation Discontinued Medications Generic Name Dose Route Start Last Admin Trade Name Freq PRN Reason Stop Dose Admin Acetaminophen 1,000 mg 10/14/17 13:44 10/14/17 14:13 Tylenol Extra Strength PO 1,000 mg Q12H PRN Administration Pain Albuterol/Ipratropium 3 ml 10/14/17 13:36 10/14/17 13:49 Duoneb 3.0-0.5 Mg/3 Ml NEB 10/14/17 13:37 3 ml ONETIME ONE Administration Lactated Ringer's 1,000 mls @ 999 mls/hr 10/14/17 13:45 10/14/17 14:35 Ringers, Lactated IV 999 mls/hr ASDIRECTED FRANCIA Administration Azithromycin 500 mg/ Sodium 250 mls @ 250 mls/hr 10/14/17 14:00 10/14/17 14: 35 Chloride IV 250 mls/hr Q24H FRANCIA Administration Ceftriaxone Sodium 2 gm/ 50 mls @ 100 mls/hr 10/14/17 13:45 10/14/17 14:02 Sodium Chloride IV 100 mls/hr Q24H FRANCIA Administration Methylprednisolone Sodium Succinate 125 mg 10/14/17 14:43 10/14/17 15:12 Solu-Medrol IVPUSH 10/14/17 14:44 125 mg ONETIME ONE Administration - Re-Assessments/Exams Free Text/Narrative Re-Assessment/Exam: 10/14/17 14:49 Duoneb was beneficial; she is resting comfortably. She will be admitted to hospitalist service. Departure - Departure Time of Disposition: 15:39 Disposition: Admitted As Inpatient 66 Condition: Fair Clinical Impression: Acute bronchitis, COPD exacerbation, Fever, Bronchitis Clinical Impression: (Ruled Out): Pneumonia - Discharge Information - Problem List & Annotations (1) COPD with acute exacerbation SNOMED Code(s): 268649849 Code(s): J44.1 - CHRONIC OBSTRUCTIVE PULMONARY DISEASE W (ACUTE) EXACERBATION Status: Acute Priority: Medium Current Visit: Yes - Problem List Review Problem List Initiated/Reviewed/Updated: Yes - My Orders Last 24 Hours: My Active Orders 10/14/17 13:44 Chest 1V Frontal [CR] Stat - Assessment/Plan Last 24 Hours: My Active Orders 10/14/17 13:44 Chest 1V Frontal [CR] Stat
[2017-10-14] MEDS ORDERED: methylPREDNISolone Sodium Succinate 125 MG/2 ML SDV IVPUSH ONE ×2 (14:43→23:00)
--- NOTE | 2017-10-14 14:56 | PCM.HP ---
H&P History of Present Illness - General Date of Service: 10/14/17 Admit Problem/Dx: Admission Diagnosis/Problem Admission Diagnosis/Problem Acute bronchitis Source of Information: Patient, Provider History Limitations: Reports: No Limitations - History of Present Illness Initial Comments - Free Text/Narative: Tiffanie presented to the ER with four days of progressive cough and shortness of breath. Cough is loose but nonproductive. Shortness of breath has progressed to the point that she is now short of breath with any activity, even trying to sit up from the couch. She reports some chest tightness but does not endorse any chest pain. She's had some chills at home but has not noticed any fevers. Energy and appetite have both been decreased from baseline. She feels weak all over. No complaints of abdominal pain or nausea. No lower extremity swelling or orthopnea. She does note that her daughter has been sick with bronchitis for several weeks but seems to be getting better. She has not had recent antibiotics. Upon arrival to the emergency room she was noted to be hypoxic. Breathing did improve slightly with a nebulizer but she does require supplemental oxygen. Laboratory studies show leukocytosis. Chest x-ray did not show definite pneumonia. She will be admitted for management of acute bronchitis with a COPD exacerbation. - Related Data Allergies/Adverse Reactions: Allergies Allergy/AdvReac Type Severity Reaction Status Date / Time pravastatin Allergy Other Verified 10/14/17 14:06 simvastatin Allergy Confusion Verified 10/14/17 14:06 Home Medications: Home Meds Escitalopram [Lexapro] 20 mg PO DAILY 01/06/13 [History] Fluticasone/Salmeterol [Advair 100-50 Diskus] 1 puff INH BID 01/06/13 [History] Lisinopril [Prinivil] 10 mg PO DAILY 01/06/13 [History] Multivitamin [Multiple Vitamins] 1 tab PO DAILY 01/06/13 [History] Pramipexole [Mirapex] 1 mg PO BEDTIME 01/06/13 [History] traZODone 200 mg PO BEDTIME 01/06/13 [History] Aspirin [Halfprin] 81 mg PO DAILY 09/13/14 [History] Vitamin A 8,000 unit PO DAILY 01/19/17 [History] Albuterol Sulfate [Proair Hfa] 1 - 2 puff IH QID PRN 01/21/17 [History] Albuterol [Proventil Neb Soln] 3 ml IH QID PRN 01/21/17 [History] Cholecalciferol (Vitamin D3) [Vitamin D3] 2,000 unit PO DAILY 01/21/17 [History] Rosuvastatin [Crestor] 5 mg PO BEDTIME 01/21/17 [History] oxyCODONE 1 tab PO Q4H PRN 10/14/17 [History] Past Medical History HEENT History: Reports: Impaired Vision Cardiovascular History: Reports: High Cholesterol, Hypertension, SOB on Exertion Other Cardiovascular History: states she has had surface blood clots and was told not to worry about them Respiratory History: Reports: Bronchitis, Recurrent, COPD, Pneumonia, Recurrent , Sleep Apnea, SOB Gastrointestinal History: Reports: Colon Polyp, GERD, Irritable Bowel Syndrome Genitourinary History: Reports: None [employer] History: Reports: , Spontaneous Musculoskeletal History: Reports: Back Pain, Chronic, Osteoarthritis Other Musculoskeletal History: siatic pain. Sciatic injection by Dr. Myrtle [facility] 10 days ago. glut. max problems Neurological History: Reports: Migraines, Other (See Below) Other Neuro History: Restless leg syndrome Psychiatric History: Reports: Anxiety, Depression Oncologic (Cancer) History: Reports: Squamous Cell Carcinoma, Uterine - Infectious Disease History Infectious Disease History: Reports: Chicken Pox - Past Surgical History Head Surgeries/Procedures: Reports: None HEENT Surgical History: Reports: Adenoidectomy, Tonsillectomy Cardiovascular Surgical History: Reports: None Respiratory Surgical History: Reports: None GI Surgical History: Reports: Appendectomy, Cholecystectomy, Colonoscopy Female Surgical History: Reports: Hysterectomy, Oophorectomy Neurological Surgical History: Reports: Lumbar Spine Musculoskeletal Surgical History: Reports: None Oncologic Surgical History: Reports: None Dermatological Surgical History: Reports: Skin Biopsy Social & Family History - Family History Family Medical History: Noncontributory - Tobacco Use Smoking Status *Q: Light Tobacco Smoker Years of Tobacco use: 42 Packs/Tins Daily: 1 - Caffeine Use Caffeine Use: Reports: Coffee - Alcohol Use Alcohol Use History: No - Recreational Drug Use Recreational Drug Use: No - Living Situation & Occupation Living situation: Reports: Alone Occupation: Employed H&P Review of Systems - Review of Systems: Review Of Systems: See Below Free Text/Narrative: A complete 12 point review of systems was obtained. Pertinent positives and negatives are noted in the history of present illness. All other systems were reviewed and were negative except as noted. Exam - Exam Exam: See Below - Vital Signs Vital Signs: Last Vital Signs Temp 38.0 C 10/14/17 14:13 Pulse 104 H 10/14/17 14:36 Resp 22 H 10/14/17 14:36 BP 114/78 10/14/17 14:36 Pulse Ox 93 L 10/14/17 14:36 - Exam Quality Assessment: Supplemental Oxygen General: Alert, Oriented, Cooperative, Mild Distress HEENT: Conjunctiva Clear. No: Mucosa Moist & [place] (dry), Scleral Icterus Neck: Supple, Trachea Midline. No: Lymphadenopathy Lungs: Wheezing (diffuse expiratory ). No: Normal Respiratory Effort ( increased work of breathing ), Crackles Cardiovascular: Regular Rhythm, Tachycardia. No: Systolic Murmur GI/Abdominal Exam: Normal Bowel Sounds, Soft, Non-Tender, No Distention Back Exam: Normal Inspection, Full Range of Motion Extremities: No Pedal Edema. No: Increased Warmth Peripheral Pulses: 1+: Dorsalis Pedis (L), Dorsalis Pedis (R) Skin: Warm, Dry, Intact Neuro Extensive - Mental Status: Alert, Oriented x3, Nl Response to Commands Neuro Extensive - Motor, Sensory, Reflexes: CN II-XII Intact. No: Dysarthria, Abnormal Motor, Tremor Psychiatric: Alert, Normal Affect - Patient Data Lab Results Last 24 hrs: Laboratory Results - last 24 hr 10/14/17 10/14/17 10/14/17 Range/Units 13:40 13:55 13:55 WBC 16.4 H (4.5-11.0) K/uL RBC 4.66 (3.30-5.50) M/uL Hgb 14.6 (12.0-15.0) g/dL Hct 43.8 (36.0-48.0) % MCV 94 (80-98) fL MCH 31 (27-31) pg MCHC 33 (32-36) % Plt Count 211 (150-400) K/uL Neut % (Auto) 86 H (36-66) % Lymph % (Auto) 7 L (24-44) % [place] % (Auto) 7 H (2-6) % Eos % (Auto) 0 L (2-4) % Baso % (Auto) 0 (0-1) % Sodium 135 L (140-148) mmol/L Potassium 4.1 (3.6-5.2) mmol/L Chloride 99 L (100-108) mmol/L Carbon Dioxide 26 (21-32) mmol/L Anion Gap 14.1 H (5.0-14.0) mmol/L BUN 5 L D (7-18) mg/dL Creatinine 0.7 (0.6-1.0) mg/dL Est Cr Clr Drug Dosing TNP Estimated GFR (MDRD) > 60 (>60) Glucose 178 H (74-106) mg/dL Lactic Acid 1.2 (0.4-2.0) mmol/L Calcium 8.8 (8.5-10.1) mg/dL Total Bilirubin 0.6 (0.2-1.0) mg/dL AST 37 (15-37) U/L ALT 127 H (12-78) U/L Alkaline Phosphatase 103 D (46-116) U/L Troponin I (0.000-0.056) ng/mL C-Reactive Protein 18.31 H (0.0-0.3) mg/dL Total Protein 7.2 (6.4-8.2) g/dL Albumin 3.1 L (3.4-5.0) g/dL Globulin 4.1 H (2.3-3.5) g/dL Albumin/Globulin Ratio 0.8 L (1.2-2.2) 10/14/17 Range/Units 14:21 WBC (4.5-11.0) K/uL RBC (3.30-5.50) M/uL Hgb (12.0-15.0) g/dL Hct (36.0-48.0) % MCV (80-98) fL MCH (27-31) pg MCHC (32-36) % Plt Count (150-400) K/uL Neut % (Auto) (36-66) % Lymph % (Auto) (24-44) % [place] % (Auto) (2-6) % Eos % (Auto) (2-4) % Baso % (Auto) (0-1) % Sodium (140-148) mmol/L Potassium (3.6-5.2) mmol/L Chloride (100-108) mmol/L Carbon Dioxide (21-32) mmol/L Anion Gap (5.0-14.0) mmol/L BUN (7-18) mg/dL Creatinine (0.6-1.0) mg/dL Est Cr Clr Drug Dosing Estimated GFR (MDRD) (>60) Glucose (74-106) mg/dL Lactic Acid (0.4-2.0) mmol/L Calcium (8.5-10.1) mg/dL Total Bilirubin (0.2-1.0) mg/dL AST (15-37) U/L ALT (12-78) U/L Alkaline Phosphatase (46-116) U/L Troponin I < 0.017 (0.000-0.056) ng/mL C-Reactive Protein (0.0-0.3) mg/dL Total Protein (6.4-8.2) g/dL Albumin (3.4-5.0) g/dL Globulin (2.3-3.5) g/dL Albumin/Globulin Ratio (1.2-2.2) Result Diagrams: 10/14/17 13:40 10/14/17 13:55 Imaging Impressions Last 24 hrs: CXR - images personally reviewed - there is hyperinflation consistent with emphysema. No mass, infiltrate or effusion. Heart size is normal. *Q Meaningful Use (ADM) - VTE Risk Assess *Q Each Risk Factor Represents 1 Point: Serious lung disease including pneumonia, Abnormal Pulmonary Function (COPD) Total Score 1 Point Risk Factors: 2 Each Risk Factor Represents 2 Points: Age 60 - 74 Years Total Score 2 Point Risk Factors: 2 Each Risk Factor Represents 3 Points: None Total Score 3 Point Risk Factors: 0 Each Risk Factor Represents 5 Points: None Total Score 5 Point Risk Factors: 0 Venous Thromboembolism Risk Factor Score *Q: 4 - Problem List (1) Acute bronchitis SNOMED Code(s): 85564608 ICD Code: J20.9 - ACUTE BRONCHITIS, UNSPECIFIED Status: Acute Current Visit: Yes Qualifiers: Bronchitis organism: unspecified organism Qualified Code(s): J20.9 - Acute bronchitis, unspecified (2) COPD with acute exacerbation SNOMED Code(s): 332610328 ICD Code: J44.1 - CHRONIC OBSTRUCTIVE PULMONARY DISEASE W (ACUTE) EXACERBATION Status: Acute Current Visit: Yes (3) Acute respiratory failure with hypoxia SNOMED Code(s): 95074471, 100458995 ICD Code: J96.01 - ACUTE RESPIRATORY FAILURE WITH HYPOXIA Status: Acute Current Visit: Yes (4) Tobacco dependence SNOMED Code(s): 71494745 ICD Code: F17.200 - NICOTINE DEPENDENCE, UNSPECIFIED, UNCOMPLICATED Status : Acute Current Visit: Yes Problem List Initiated/Reviewed/Updated: Yes Orders Last 24hrs: Active Orders 24 hr Category Date Time Status Patient Status Manage Transfer [TRANSFER] Routine ADT 10/14/17 14:44 Ordered RT Aerosol Therapy [RC] ASDIRECTED Care 10/14/17 13:36 Active Vital Signs [RC] Q1H Care 10/14/17 13:40 Active Chest 1V Frontal [CR] Stat Exams 10/14/17 13:44 Taken CULTURE BLOOD [BC] Urgent Lab 10/14/17 13:55 Received CULTURE BLOOD [BC] Urgent Lab 10/14/17 14:00 Received UA W/MICROSCOPIC [URIN] Urgent Lab 10/14/17 13:39 Ordered Acetaminophen [Tylenol Extra Strength] Med 10/14/17 13:44 Active 1,000 mg PO Q12H PRN Azithromycin [Zithromax] 500 mg Med 10/14/17 14:00 Active Sodium Chloride 0.9% [Normal Saline] 250 ml IV Q24H Lactated Ringers [Ringers, Lactated] 1,000 ml Med 10/14/17 13:45 Active IV ASDIRECTED cefTRIAXone [Rocephin] 2 gm Med 10/14/17 13:45 Active Sodium Chloride 0.9% [Normal Saline] 50 ml IV Q24H Blood Culture x2 Reflex Set [OM.PC] Urgent Oth 10/14/17 13:40 Ordered Resuscitation Status Routine Resus Stat 10/14/17 14:46 Ordered Medication Orders Acetaminophen (Tylenol Extra Strength) 1,000 mg PO Q12H PRN PRN Reason: Pain Last Admin: 10/14/17 14:13 Dose: 1,000 mg Lactated Ringer's (Ringers, Lactated) 1,000 mls @ 999 mls/hr IV ASDIRECTED FRANCIA Last Admin: 10/14/17 14:35 Dose: 999 mls/hr Azithromycin 500 mg/ Sodium (Chloride) 250 mls @ 250 mls/hr IV Q24H FRANCIA Last Admin: 07/03/18 14:35 Dose: 250 mls/hr Ceftriaxone Sodium 2 gm/ (Sodium Chloride) 50 mls @ 100 mls/hr IV Q24H FRANCIA Last Admin: 10/14/17 14:02 Dose: 100 mls/hr Assessment/Plan Comment:: ASSESSMENT AND PLAN - Acute bronchitis with hypoxic respiratory failure and acute COPD exacerbation - chest x-ray suggested emphysema but did not show definitive infiltrate. She is hypoxic and has diffuse expiratory wheezing. Recent sick contact noted. Lactic acid level is normal. She has received antibiotics in the emergency room. -Antibiotic coverage with ceftriaxone and azithromycin -IV steroids today and transition to prednisone tomorrow -Scheduled and as needed nebulizers -Cough suppressants -Supplement oxygen Tobacco dependence - patient is interested in quitting at this time. Nicotine patch provided during the hospital stay. Cessation information will be offered as indicated. Anxiety with depression - stable. -Continue home meds Essential hypertension - blood pressure acceptable. -Continue home medications Maintenance issues - - DVT prophylaxis - mechanical - GI prophylaxis - not indicated - Nutrition - regular diet - Solomon catheter - not indicated CODE STATUS - full code Admission justification - This patient will be admitted for inpatient services and is medically appropriate meeting medical necessity for inpatient admission as outlined in my documentation. I reasonably expect the patient will require inpatient services that span a period time over 2 midnights. I reasonably expect this patient to be discharged or transferred within 96 hours [facility]. Disposition - anticipate discharge to home after the hospital stay Primary care physician - Prem Moran M.D.
[2017-10-14] MEDS ORDERED: Ondansetron 4 MG Tab.DIS PO PRN (15:28)
[2017-10-14] MEDS ORDERED: Magnesium Hydroxide 400 MG/5 ML Susp 30 ML Cup PO PRN (15:28)
[2017-10-14] MEDS ORDERED: Ibuprofen 600 MG Tab PO PRN (15:28)
[2017-10-14] MEDS ORDERED: Acetaminophen 325 MG Tab PO PRN (15:28)
[2017-10-14] MEDS ORDERED: Polyethylene Glycol 3350 Powder 17 GM Packet PO PRN (15:28)
[2017-10-14] MEDS: Albuterol/Ipratropium 3.0-0.5 MG/3 ML Neb Soln NEB SCH ×2 (15:35→20:49)
[2017-10-14] MEDS: Nicotine 21 MG/24 Hr Patch TRDERM SCH (17:46)
[2017-10-14] MEDS: Formoterol/Mometasone 100-5 MCG 8.8 GM Inhaler IH SCH (20:44)
[2017-10-14] MEDS ORDERED: PRAMIPEXOLE 1 MG PO SCH (21:00)
[2017-10-14] MEDS ORDERED: Non-Formulary Medication 1 Each (Trazodone [Trazodone] 200 MG) PO SCH (21:00)
[2017-10-14] MEDS ORDERED: Non-Formulary Medication 1 Each (Fluticasone/Salmeterol [Advair 100-50] 1 PUFF) INH SCH (21:00)
[2017-10-14] MEDS ORDERED: Non-Formulary Medication 1 Each (Rosuvastatin [Crestor] 5 MG) PO SCH (21:00)
[2017-10-14] MEDS: Rosuvastatin 10 MG Tab PO SCH (21:52)
[2017-10-14] MEDS: Pramipexole 0.5 MG Tab PO SCH (21:53)
[2017-10-14] MEDS: traZODone 50 MG Tab PO SCH (21:53)
[2017-10-14] MEDS: Escitalopram 20 MG Tab PO SCH (21:53)
[2017-10-15] MEDS: Albuterol 0.083% 2.5 MG/3 ML Neb Soln NEB PRN ×2 (03:35→17:55)
[2017-10-15] MEDS: Formoterol/Mometasone 100-5 MCG 8.8 GM Inhaler IH SCH ×2 (07:32→21:35)
[2017-10-15] MEDS: Albuterol/Ipratropium 3.0-0.5 MG/3 ML Neb Soln NEB SCH ×4 (07:32→21:35)
[2017-10-15] MEDS: oxyCODONE 5 MG Tab PO PRN ×2 (08:00→14:23)
[2017-10-15] MEDS: Benzonatate 100 MG Cap PO PRN ×2 (08:00→22:36)
[2017-10-15] MEDS: Aspirin 81 MG Tab.EC PO SCH (08:02)
[2017-10-15] MEDS: predniSONE 20 MG Tab PO SCH ×2 (08:02→17:32)
[2017-10-15] MEDS: Azithromycin 250 MG Tab PO SCH (08:03)
[2017-10-15] MEDS: Nicotine 21 MG/24 Hr Patch TRDERM SCH (08:03)
[2017-10-15] MEDS: Lisinopril 10 MG Tab PO SCH (08:05)
[2017-10-15] MEDS ORDERED: Escitalopram 20 MG Tab PO SCH (09:00)
[2017-10-15] MEDS: Magnesium Sulfate/Water 2 GM in Premix Bag 1 BAG IV SCH ×2 (09:32→14:24)
--- NOTE | 2017-10-15 10:34 | PCM.PN ---
- General Info Date of Service: 10/15/17 Functional Status: Reports: Pain Controlled, Tolerating Diet - Review of Systems General: Denies: Fever Pulmonary: Reports: Shortness of Breath, Cough Systems Review Comment:: No acute events overnight. She is feeling a little better today but still short of breath, especially with activity. Wheezing has improved. She has not had fevers overnight. Supplemental oxygen requirement has decreased but not resolved. Chest tightness is much better today. No nausea. - Patient Data Vitals - Most Recent: Last Vital Signs Temp 35.9 C 10/15/17 07:00 Pulse 89 10/15/17 07:00 Resp 16 10/15/17 07:00 BP 112/62 10/15/17 08:05 Pulse Ox 92 L 10/15/17 07:00 Weight - Most Recent: 58.423 kg I&O - Last 24 Hours: Intake & Output 10/14/17 10/15/17 10/15/17 22:59 06:59 14:59 Intake Total 200 420 650 Balance 200 420 650 Lab Results Last 24 Hours: Laboratory Results - last 24 hr 10/14/17 10/14/17 10/14/17 Range/Units 13:40 13:55 13:55 WBC 16.4 H (4.5-11.0) K/uL RBC 4.66 (3.30-5.50) M/uL Hgb 14.6 (12.0-15.0) g/dL Hct 43.8 (36.0-48.0) % MCV 94 (80-98) fL MCH 31 (27-31) pg MCHC 33 (32-36) % Plt Count 211 (150-400) K/uL Neut % (Auto) 86 H (36-66) % Lymph % (Auto) 7 L (24-44) % Lucas % (Auto) 7 H (2-6) % Eos % (Auto) 0 L (2-4) % Baso % (Auto) 0 (0-1) % Sodium 135 L (140-148) mmol/L Potassium 4.1 (3.6-5.2) mmol/L Chloride 99 L (100-108) mmol/L Carbon Dioxide 26 (21-32) mmol/L Anion Gap 14.1 H (5.0-14.0) mmol/L BUN 5 L D (7-18) mg/dL Creatinine 0.7 (0.6-1.0) mg/dL Est Cr Clr Drug Dosing TNP Estimated GFR (MDRD) > 60 (>60) Glucose 178 H (74-106) mg/dL Lactic Acid 1.2 (0.4-2.0) mmol/L Calcium 8.8 (8.5-10.1) mg/dL Magnesium (1.8-2.4) mg/dL Total Bilirubin 0.6 (0.2-1.0) mg/dL AST 37 (15-37) U/L ALT 127 H (12-78) U/L Alkaline Phosphatase 103 D (46-116) U/L Troponin I (0.000-0.056) ng/mL C-Reactive Protein 18.31 H (0.0-0.3) mg/dL Total Protein 7.2 (6.4-8.2) g/dL Albumin 3.1 L (3.4-5.0) g/dL Globulin 4.1 H (2.3-3.5) g/dL Albumin/Globulin Ratio 0.8 L (1.2-2.2) 10/14/17 10/15/17 10/15/17 Range/Units 14:21 05:45 05:45 WBC 11.3 H (4.5-11.0) K/uL RBC 4.32 (3.30-5.50) M/uL Hgb 13.4 (12.0-15.0) g/dL Hct 40.7 (36.0-48.0) % MCV 94 (80-98) fL MCH 31 (27-31) pg MCHC 33 (32-36) % Plt Count 181 (150-400) K/uL Neut % (Auto) (36-66) % Lymph % (Auto) (24-44) % Lucas % (Auto) (2-6) % Eos % (Auto) (2-4) % Baso % (Auto) (0-1) % Sodium 135 L (140-148) mmol/L Potassium 3.7 (3.6-5.2) mmol/L Chloride 100 (100-108) mmol/L Carbon Dioxide 25 (21-32) mmol/L Anion Gap 13.7 (5.0-14.0) mmol/L BUN 7 (7-18) mg/dL Creatinine 0.7 (0.6-1.0) mg/dL Est Cr Clr Drug Dosing 65.37 Estimated GFR (MDRD) > 60 (>60) Glucose 307 H (74-106) mg/dL Lactic Acid (0.4-2.0) mmol/L Calcium 8.7 (8.5-10.1) mg/dL Magnesium 1.5 L (1.8-2.4) mg/dL Total Bilirubin (0.2-1.0) mg/dL AST (15-37) U/L ALT (12-78) U/L Alkaline Phosphatase (46-116) U/L Troponin I < 0.017 (0.000-0.056) ng/mL C-Reactive Protein (0.0-0.3) mg/dL Total Protein (6.4-8.2) g/dL Albumin (3.4-5.0) g/dL Globulin (2.3-3.5) g/dL Albumin/Globulin Ratio (1.2-2.2) Med Orders - Current: Current Medications Acetaminophen (Tylenol) 650 mg PO Q4H PRN PRN Reason: Pain (Mild 1-3)/fever Albuterol (Proventil Neb Soln) 2.5 mg NEB Q4H PRN PRN Reason: Shortness Of Breath/wheezing Last Admin: 10/15/17 03:35 Dose: 2.5 mg Albuterol/Ipratropium (Duoneb 3.0-0.5 Mg/3 Ml) 3 ml NEB QIDRT [facility] Last Admin: 10/15/17 07:32 Dose: 3 ml Aspirin (Halfprin) 81 mg PO DAILY [facility] Last Admin: 10/15/17 08:02 Dose: 81 mg Azithromycin (Zithromax) 500 mg PO DAILY [facility] Last Admin: 10/15/17 08:03 Dose: 500 mg Benzonatate (Tessalon Perles) 100 mg PO TID PRN PRN Reason: Cough Last Admin: 10/15/17 08:00 Dose: 100 mg Escitalopram Oxalate (Lexapro) 20 mg PO BEDTIME [facility] Last Admin: 10/14/17 21:53 Dose: 20 mg Guaifenesin/Codeine Phosphate (Robitussin Ac) 10 ml PO Q4H PRN PRN Reason: Cough Ceftriaxone Sodium 2 gm/ (Sodium Chloride) 50 mls @ 100 mls/hr IV Q24H [facility] Magnesium Sulfate 2 gm/ Premix 50 mls @ 25 mls/hr IV Q6H [facility] Stop: 10/15/17 16:59 Last Admin: 10/15/17 09:32 Dose: 25 mls/hr Ibuprofen (Motrin) 600 mg PO Q6H PRN PRN Reason: Pain/Fever Insulin Aspart (Novolog) 0 unit SUBCUT QIDACANDBED [facility]; Protocol Lisinopril (Prinivil) 10 mg PO DAILY [facility] Last Admin: 10/15/17 08:05 Dose: 10 mg Magnesium Hydroxide (Milk Of Magnesia) 30 ml PO Q12H PRN PRN Reason: Constipation Last Admin: 10/15/17 08:02 Dose: 30 ml Mometasone Furoate/Formoterol Fumar (Dulera 100-5 Mcg) 2 puff IH BIDRT [facility] Last Admin: 10/15/17 07:32 Dose: 2 puff Nicotine (Habitrol) 21 mg TRDERM DAILY [facility] Last Admin: 10/15/17 08:03 Dose: 21 mg Ondansetron HCl (Zofran Odt) 4 mg PO Q6H PRN PRN Reason: Nausea able to take PO Oxycodone HCl (Oxycodone) 5 mg PO Q4H PRN PRN Reason: Pain Last Admin: 10/15/17 08:00 Dose: 5 mg Polyethylene Glycol (Miralax) 17 gm PO DAILY PRN PRN Reason: Constipation Pramipexole Dihydrochloride (Mirapex) 1 mg PO BEDTIME [facility] Last Admin: 10/14/17 21:53 Dose: 1 mg Prednisone (Prednisone) 20 mg PO BIDMEALS [facility] Last Admin: 10/15/17 08:02 Dose: 20 mg Rosuvastatin Calcium (Crestor) 5 mg PO BEDTIME [facility] Last Admin: 10/14/17 21:52 Dose: Not Given Senna/Docusate Sodium (Senna Plus) 1 tab PO BID PRN PRN Reason: Constipation Trazodone HCl (Trazodone) 200 mg PO BEDTIME [facility] Last Admin: 10/14/17 21:53 Dose: 200 mg Discontinued Medications Acetaminophen (Tylenol Extra Strength) 1,000 mg PO Q12H PRN PRN Reason: Pain Last Admin: 10/14/17 14:13 Dose: 1,000 mg Albuterol/Ipratropium (Duoneb 3.0-0.5 Mg/3 Ml) 3 ml NEB ONETIME ONE Stop: 10/14/17 13:37 Last Admin: 10/14/17 13:49 Dose: 3 ml Lactated Ringer's (Ringers, Lactated) 1,000 mls @ 999 mls/hr IV ASDIRECTED [facility] Last Admin: 10/14/17 14:35 Dose: 999 mls/hr Azithromycin 500 mg/ Sodium (Chloride) 250 mls @ 250 mls/hr IV Q24H [facility] Last Admin: 10/14/17 14:35 Dose: 250 mls/hr Ceftriaxone Sodium 2 gm/ (Sodium Chloride) 50 mls @ 100 mls/hr IV Q24H [facility] Last Admin: 10/14/17 14:02 Dose: 100 mls/hr Methylprednisolone Sodium Succinate (Solu-Medrol) 125 mg IVPUSH ONETIME ONE Stop: 10/14/17 14:44 Last Admin: 10/14/17 15:12 Dose: 125 mg Methylprednisolone Sodium Succinate (Solu-Medrol) 62.5 mg IVPUSH ONETIME ONE Stop: 10/14/17 23:01 Last Admin: 10/14/17 22:03 Dose: 62.5 mg - Exam Quality Assessment: Supplemental Oxygen General: Alert, Oriented, Cooperative, No Acute Distress Neck: Supple Lungs: Normal Respiratory Effort, Wheezing (mild end exp wheezing) Cardiovascular: Regular Rate, Regular Rhythm GI/Abdominal Exam: Soft, No Distention Extremities: No Pedal Edema Skin: Warm, Dry Psy/Mental Status: Alert, Normal Affect - Problem List & Annotations (1) Acute bronchitis SNOMED Code(s): 63305488 Code(s): J20.9 - ACUTE BRONCHITIS, UNSPECIFIED Status: Acute Current Visit: Yes Qualifiers: Bronchitis organism: unspecified organism Qualified Code(s): J20.9 - Acute bronchitis, unspecified (2) COPD with acute exacerbation SNOMED Code(s): 315590138 Code(s): J44.1 - CHRONIC OBSTRUCTIVE PULMONARY DISEASE W (ACUTE) EXACERBATION Status: Acute Priority: Medium Current Visit: Yes (3) Acute respiratory failure with hypoxia SNOMED Code(s): 79211980, 418526974 Code(s): J96.01 - ACUTE RESPIRATORY FAILURE WITH HYPOXIA Status: Acute Current Visit: Yes (4) Tobacco dependence SNOMED Code(s): 09116218 Code(s): F17.200 - NICOTINE DEPENDENCE, UNSPECIFIED, UNCOMPLICATED Status: Acute Current Visit: Yes - Problem List Review Problem List Initiated/Reviewed/Updated: Yes - My Orders Last 24 Hours: My Active Orders 10/14/17 14:46 Resuscitation Status Routine 10/14/17 15:00 Albuterol/Ipratropium [DuoNeb 3.0-0.5 MG/3 ML] 3 ml NEB QIDRT 10/14/17 15:28 Patient Status [ADT] Routine Notify Provider Vital Signs [RC] ASDIRECTED Oxygen Therapy [RC] PRN RT Aerosol Therapy [RC] ASDIRECTED Up With Assistance [RC] ASDIRECTED Up to Chair [RC] QID Vital Signs [RC] Q4H Acetaminophen [Tylenol] 650 mg PO Q4H PRN Albuterol [Proventil Neb Soln] 2.5 mg NEB Q4H PRN Benzonatate [Tessalon Perles] 100 mg PO TID PRN Codeine/guaiFENesin [Robitussin AC] 10 ml PO Q4H PRN Docusate Sodium/Sennosides [Senna Plus] 1 tab PO BID PRN Ibuprofen [Motrin] 600 mg PO Q6H PRN Magnesium Hydroxide [Milk of Magnesia] 30 ml PO Q12H PRN Ondansetron [Zofran ODT] 4 mg PO Q6H PRN Polyethylene Glycol 3350 [MiraLAX] 17 gm PO DAILY PRN oxyCODONE 5 mg PO Q4H PRN Convert IV to Saline Lock [OM.PC] Routine Sequential Compression Device [OM.PC] Per Unit Routine 10/14/17 16:00 Nicotine [Habitrol] 21 mg TRDERM DAILY 10/14/17 21:00 Mometasone/Formoterol [Dulera 100-5 MCG] 2 puff IH BIDRT Pramipexole [Mirapex] 1 mg PO BEDTIME Rosuvastatin [Crestor] 5 mg PO BEDTIME traZODone 200 mg PO BEDTIME 10/14/17 21:30 Escitalopram [Lexapro] 20 mg PO BEDTIME 10/14/17 Dinner Regular Diet [DIET] 10/15/17 08:00 predniSONE 20 mg PO BIDMEALS 10/15/17 08:40 Communication Order [RC] PRN Communication Order [RC] PRN Diabetes Education [RC] Click to Edit Notify Provider [RC] PRN 10/15/17 09:00 Aspirin [Halfprin] 81 mg PO DAILY Azithromycin [Zithromax] 500 mg PO DAILY Lisinopril [Prinivil] 10 mg PO DAILY Magnesium Sulfate/Water [Magnesium Sulfate 2 GM in Water 50 ML] 2 gm Premix Bag 1 bag IV Q6H 10/15/17 11:00 Insulin Aspart [NovoLOG] See Protocol SUBCUT QIDACANDBED 10/15/17 11:30 GLUCOSE POC LAB TO COLLECT [POC] QIDACANDBED 10/15/17 14:00 cefTRIAXone [Rocephin] 2 gm Sodium Chloride 0.9% [Normal Saline] 50 ml IV Q24H 10/15/17 16:30 GLUCOSE POC LAB TO COLLECT [POC] QIDACANDBED 10/15/17 21:00 GLUCOSE POC LAB TO COLLECT [POC] QIDACANDBED 10/16/17 05:00 BASIC METABOLIC PANEL,BMP [CHEM] Timed CBC W/O DIFF,HEMOGRAM [HEME] Timed (1) 10/16/17 07:30 GLUCOSE POC LAB TO COLLECT [POC] QIDACANDBED 10/16/17 11:30 GLUCOSE POC LAB TO COLLECT [POC] QIDACANDBED 10/16/17 16:30 GLUCOSE POC LAB TO COLLECT [POC] QIDACANDBED 10/16/17 21:00 GLUCOSE POC LAB TO COLLECT [POC] QIDACANDBED 10/17/17 07:30 GLUCOSE POC LAB TO COLLECT [POC] QIDACANDBED 10/17/17 11:30 GLUCOSE POC LAB TO COLLECT [POC] QIDACANDBED 10/17/17 16:30 GLUCOSE POC LAB TO COLLECT [POC] QIDACANDBED 10/17/17 21:00 GLUCOSE POC LAB TO COLLECT [POC] QIDACANDBED 10/18/17 07:30 GLUCOSE POC LAB TO COLLECT [POC] QIDACANDBED 10/18/17 11:30 GLUCOSE POC LAB TO COLLECT [POC] QIDACANDBED 10/18/17 16:30 GLUCOSE POC LAB TO COLLECT [POC] QIDACANDBED 10/18/17 21:00 GLUCOSE POC LAB TO COLLECT [POC] QIDACANDBED 10/19/17 07:30 GLUCOSE POC LAB TO COLLECT [POC] QIDACANDBED 10/19/17 11:30 GLUCOSE POC LAB TO COLLECT [POC] QIDACANDBED 10/19/17 16:30 GLUCOSE POC LAB TO COLLECT [POC] QIDACANDBED 10/19/17 21:00 GLUCOSE POC LAB TO COLLECT [POC] QIDACANDBED 10/20/17 07:30 GLUCOSE POC LAB TO COLLECT [POC] QIDACANDBED 10/20/17 11:30 GLUCOSE POC LAB TO COLLECT [POC] QIDACANDBED 10/20/17 16:30 GLUCOSE POC LAB TO COLLECT [POC] QIDACANDBED - Plan Plan:: ASSESSMENT AND PLAN - Acute bronchitis with hypoxic respiratory failure and acute COPD exacerbation - clinically improving but still requiring supplemental oxygen. No fevers overnight. Still very short of breath with activity. -Antibiotic coverage with ceftriaxone and azithromycin -Transition to prednisone this morning -Scheduled and as needed nebulizers -Cough suppressants -Supplement oxygen Tobacco dependence - patient is interested in quitting at this time. Nicotine patch provided during the hospital stay. Cessation information will be offered as indicated. Anxiety with depression - stable. -Continue home meds Essential hypertension - blood pressure acceptable. -Continue home medications Maintenance issues - - DVT prophylaxis - mechanical - GI prophylaxis - not indicated - Nutrition - regular diet Disposition - anticipate discharge to home after the hospital stay Kevin Moran M.D.
[2017-10-15] MEDS: Insulin Aspart 100 Units/ML 3 ML Pen SUBCUT SCH ×3 (11:36→21:35)
[2017-10-15] MEDS ORDERED: cefTRIAXone 2 GM in Sodium Chloride 0.9% 50 ML IV SCH (14:00)
[2017-10-15] MEDS: Rosuvastatin 10 MG Tab PO SCH (22:36)
[2017-10-15] MEDS: Pramipexole 0.5 MG Tab PO SCH (22:36)
[2017-10-15] MEDS: traZODone 50 MG Tab PO SCH (22:36)
[2017-10-15] MEDS: Escitalopram 20 MG Tab PO SCH (22:36)
[2017-10-15] MEDS: Codeine/guaiFENesin 100mg-10 MG/5 ML Syrup 10 ML Cup PO PRN (23:57)
[2017-10-16] MEDS: Albuterol 0.083% 2.5 MG/3 ML Neb Soln NEB PRN (04:04)
[2017-10-16] MEDS: Benzonatate 100 MG Cap PO PRN (05:57)
[2017-10-16] MEDS: Albuterol/Ipratropium 3.0-0.5 MG/3 ML Neb Soln NEB SCH ×4 (07:34→21:16)
[2017-10-16] MEDS: Formoterol/Mometasone 100-5 MCG 8.8 GM Inhaler IH SCH ×2 (07:34→21:15)
[2017-10-16] MEDS: Codeine/guaiFENesin 100mg-10 MG/5 ML Syrup 10 ML Cup PO PRN ×2 (08:37→21:40)
[2017-10-16] MEDS: Insulin Aspart 100 Units/ML 3 ML Pen SUBCUT SCH ×4 (08:39→21:12)
[2017-10-16] MEDS: Azithromycin 250 MG Tab PO SCH (08:41)
[2017-10-16] MEDS: Aspirin 81 MG Tab.EC PO SCH (08:41)
[2017-10-16] MEDS: predniSONE 20 MG Tab PO SCH ×2 (08:41→18:17)
[2017-10-16] MEDS: Lisinopril 10 MG Tab PO SCH (08:41)
[2017-10-16] MEDS: Nicotine 21 MG/24 Hr Patch TRDERM SCH (08:41)
--- NOTE | 2017-10-16 10:28 | CR ---
Chest 1V Frontal INDICATION: shortness of breath COMPARISON: 05/17/2015 FINDINGS: AP portable chest. Heart size normal. Presumed mild fibrotic change at the lung bases though this is new since the prior study. Given clinical history, this could also represent mild interstitial pulmonary edema. No dense consolidation or pleural effusion.
--- NOTE | 2017-10-16 10:32 | PCM.PN ---
- General Info Date of Service: 10/16/17 Functional Status: Reports: Pain Controlled, Tolerating Diet - Review of Systems General: Reports: Weakness Pulmonary: Reports: Shortness of Breath, Cough Systems Review Comment:: There were no acute events overnight other than a coughing spell that led to some shortness of breath. She has not had any fevers. Shortness of breath has improved but is not back to baseline. Still has a loose cough with intermittent spells leading to significant shortness of breath. She has been up and walking around and get short of breath relatively quickly but has been able to ambulate further today than yesterday. Did not sleep well last night because of coughing and shortness of breath. - Patient Data Vitals - Most Recent: Last Vital Signs Temp 36.4 C 10/16/17 07:00 Pulse 80 10/16/17 07:36 Resp 18 10/16/17 07:00 BP 127/80 10/16/17 08:41 Pulse Ox 92 L 10/16/17 07:36 Weight - Most Recent: 58.423 kg I&O - Last 24 Hours: Intake & Output 10/15/17 10/16/17 10/16/17 22:59 06:59 14:59 Intake Total 1180 Balance 1180 Lab Results Last 24 Hours: Laboratory Results - last 24 hr 10/16/17 10/16/17 Range/Units 05:10 05:10 WBC 13.9 H (4.5-11.0) K/uL RBC 4.27 (3.30-5.50) M/uL Hgb 13.4 (12.0-15.0) g/dL Hct 40.7 (36.0-48.0) % MCV 95 (80-98) fL MCH 31 (27-31) pg MCHC 33 (32-36) % Plt Count 202 (150-400) K/uL Sodium 136 L (140-148) mmol/L Potassium 4.4 (3.6-5.2) mmol/L Chloride 100 (100-108) mmol/L Carbon Dioxide 28 (21-32) mmol/L Anion Gap 12.4 (5.0-14.0) mmol/L BUN 10 (7-18) mg/dL Creatinine 0.7 (0.6-1.0) mg/dL Est Cr Clr Drug Dosing 65.37 mL/min Estimated GFR (MDRD) > 60 (>60) Glucose 209 H (74-106) mg/dL Calcium 8.9 (8.5-10.1) mg/dL Jeffrey Results Last 24 Hours: Microbiology 10/14/17 14:00 Aerobic Blood Culture - Preliminary Blood - Venous - Lab Draw NO GROWTH AFTER 1 DAY Anaerobic Blood Culture - Preliminary NO GROWTH AFTER 1 DAY 10/14/17 13:55 Aerobic Blood Culture - Preliminary Blood - Arm, Left NO GROWTH AFTER 1 DAY Anaerobic Blood Culture - Preliminary NO GROWTH AFTER 1 DAY Med Orders - Current: Current Medications Acetaminophen (Tylenol) 650 mg PO Q4H PRN PRN Reason: Pain (Mild 1-3)/fever Albuterol (Proventil Neb Soln) 2.5 mg NEB Q4H PRN PRN Reason: Shortness Of Breath/wheezing Last Admin: 10/16/17 04:04 Dose: 2.5 mg Albuterol/Ipratropium (Duoneb 3.0-0.5 Mg/3 Ml) 3 ml NEB QIDRT [facility] Last Admin: 10/16/17 07:34 Dose: 3 ml Aspirin (Halfprin) 81 mg PO DAILY [facility] Last Admin: 10/16/17 08:41 Dose: 81 mg Azithromycin (Zithromax) 500 mg PO DAILY [facility] Last Admin: 10/16/17 08:41 Dose: 500 mg Benzonatate (Tessalon Perles) 100 mg PO TID PRN PRN Reason: Cough Last Admin: 10/16/17 05:57 Dose: 100 mg Escitalopram Oxalate (Lexapro) 20 mg PO BEDTIME [facility] Last Admin: 10/15/17 22:36 Dose: 20 mg Guaifenesin/Codeine Phosphate (Robitussin Ac) 10 ml PO Q4H PRN PRN Reason: Cough Last Admin: 10/16/17 08:37 Dose: 10 ml Ceftriaxone Sodium 2 gm/ (Sodium Chloride) 50 mls @ 100 mls/hr IV Q24H [facility] Last Admin: 10/15/17 14:17 Dose: 100 mls/hr Ibuprofen (Motrin) 600 mg PO Q6H PRN PRN Reason: Pain/Fever Insulin Aspart (Novolog) 0 unit SUBCUT QIDACANDBED [facility]; Protocol Last Admin: 10/16/17 08:39 Dose: 2 units Lisinopril (Prinivil) 10 mg PO DAILY [facility] Last Admin: 10/16/17 08:41 Dose: 10 mg Magnesium Hydroxide (Milk Of Magnesia) 30 ml PO Q12H PRN PRN Reason: Constipation Last Admin: 10/15/17 08:02 Dose: 30 ml Mometasone Furoate/Formoterol Fumar (Dulera 100-5 Mcg) 2 puff IH BIDRT [facility] Last Admin: 10/16/17 07:34 Dose: 2 puff Nicotine (Habitrol) 21 mg TRDERM DAILY [facility] Last Admin: 10/16/17 08:41 Dose: 21 mg Ondansetron HCl (Zofran Odt) 4 mg PO Q6H PRN PRN Reason: Nausea able to take PO Oxycodone HCl (Oxycodone) 5 mg PO Q4H PRN PRN Reason: Pain Last Admin: 10/15/17 14:23 Dose: 5 mg Polyethylene Glycol (Miralax) 17 gm PO DAILY PRN PRN Reason: Constipation Pramipexole Dihydrochloride (Mirapex) 1 mg PO BEDTIME [facility] Last Admin: 10/15/17 22:36 Dose: 1 mg Prednisone (Prednisone) 20 mg PO BIDMEALS [facility] Last Admin: 10/16/17 08:41 Dose: 20 mg Rosuvastatin Calcium (Crestor) 5 mg PO BEDTIME [facility] Last Admin: 10/15/17 22:36 Dose: 5 mg Senna/Docusate Sodium (Senna Plus) 1 tab PO BID PRN PRN Reason: Constipation Last Admin: 10/15/17 19:35 Dose: 1 tab Trazodone HCl (Trazodone) 200 mg PO BEDTIME [facility] Last Admin: 10/15/17 22:36 Dose: 200 mg Discontinued Medications Acetaminophen (Tylenol Extra Strength) 1,000 mg PO Q12H PRN PRN Reason: Pain Last Admin: 10/14/17 14:13 Dose: 1,000 mg Albuterol/Ipratropium (Duoneb 3.0-0.5 Mg/3 Ml) 3 ml NEB ONETIME ONE Stop: 10/14/17 13:37 Last Admin: 10/14/17 13:49 Dose: 3 ml Lactated Ringer's (Ringers, Lactated) 1,000 mls @ 999 mls/hr IV ASDIRECTED [facility] Last Admin: 10/14/17 14:35 Dose: 999 mls/hr Azithromycin 500 mg/ Sodium (Chloride) 250 mls @ 250 mls/hr IV Q24H [facility] Last Admin: 10/14/17 14:35 Dose: 250 mls/hr Ceftriaxone Sodium 2 gm/ (Sodium Chloride) 50 mls @ 100 mls/hr IV Q24H [facility] Last Admin: 10/14/17 14:02 Dose: 100 mls/hr Magnesium Sulfate 2 gm/ Premix 50 mls @ 25 mls/hr IV Q6H [facility] Stop: 10/15/17 16:59 Last Admin: 10/15/17 14:24 Dose: 25 mls/hr Methylprednisolone Sodium Succinate (Solu-Medrol) 125 mg IVPUSH ONETIME ONE Stop: 10/14/17 14:44 Last Admin: 10/14/17 15:12 Dose: 125 mg Methylprednisolone Sodium Succinate (Solu-Medrol) 62.5 mg IVPUSH ONETIME ONE Stop: 10/14/17 23:01 Last Admin: 10/14/17 22:03 Dose: 62.5 mg - Exam Quality Assessment: Supplemental Oxygen General: Alert, Oriented, Cooperative, No Acute Distress Lungs: Normal Respiratory Effort. No: Crackles, Wheezing Cardiovascular: Regular Rate, Regular Rhythm GI/Abdominal Exam: Soft, No Distention Extremities: No Pedal Edema Psy/Mental Status: Alert, Normal Affect - Problem List & Annotations (1) Acute bronchitis SNOMED Code(s): 74737369 Code(s): J20.9 - ACUTE BRONCHITIS, UNSPECIFIED Status: Acute Current Visit: Yes Qualifiers: Bronchitis organism: unspecified organism Qualified Code(s): J20.9 - Acute bronchitis, unspecified (2) COPD with acute exacerbation SNOMED Code(s): 550616228 Code(s): J44.1 - CHRONIC OBSTRUCTIVE PULMONARY DISEASE W (ACUTE) EXACERBATION Status: Acute Priority: Medium Current Visit: Yes (3) Acute respiratory failure with hypoxia SNOMED Code(s): 86510416, 004062231 Code(s): J96.01 - ACUTE RESPIRATORY FAILURE WITH HYPOXIA Status: Acute Current Visit: Yes (4) Tobacco dependence SNOMED Code(s): 26840898 Code(s): F17.200 - NICOTINE DEPENDENCE, UNSPECIFIED, UNCOMPLICATED Status: Acute Current Visit: Yes - Problem List Review Problem List Initiated/Reviewed/Updated: Yes - My Orders Last 24 Hours: My Active Orders 10/15/17 11:00 Insulin Aspart [NovoLOG] See Protocol SUBCUT QIDACANDBED 10/15/17 14:00 cefTRIAXone [Rocephin] 2 gm Sodium Chloride 0.9% [Normal Saline] 50 ml IV Q24H 10/16/17 11:30 GLUCOSE POC LAB TO COLLECT [POC] QIDACANDBED 10/16/17 16:30 GLUCOSE POC LAB TO COLLECT [POC] QIDACANDBED 10/16/17 21:00 GLUCOSE POC LAB TO COLLECT [POC] QIDACANDBED Cefdinir [Omnicef] 300 mg PO BID 10/17/17 05:00 CBC W/O DIFF,HEMOGRAM [HEME] Timed (1) 10/17/17 07:30 GLUCOSE POC LAB TO COLLECT [POC] QIDACANDBED 10/17/17 11:30 GLUCOSE POC LAB TO COLLECT [POC] QIDACANDBED 10/17/17 16:30 GLUCOSE POC LAB TO COLLECT [POC] QIDACANDBED 10/17/17 21:00 GLUCOSE POC LAB TO COLLECT [POC] QIDACANDBED 10/18/17 07:30 GLUCOSE POC LAB TO COLLECT [POC] QIDACANDBED 10/18/17 11:30 GLUCOSE POC LAB TO COLLECT [POC] QIDACANDBED 10/18/17 16:30 GLUCOSE POC LAB TO COLLECT [POC] QIDACANDBED 10/18/17 21:00 GLUCOSE POC LAB TO COLLECT [POC] QIDACANDBED 10/19/17 07:30 GLUCOSE POC LAB TO COLLECT [POC] QIDACANDBED 10/19/17 11:30 GLUCOSE POC LAB TO COLLECT [POC] QIDACANDBED 10/19/17 16:30 GLUCOSE POC LAB TO COLLECT [POC] QIDACANDBED 10/19/17 21:00 GLUCOSE POC LAB TO COLLECT [POC] QIDACANDBED 10/20/17 07:30 GLUCOSE POC LAB TO COLLECT [POC] QIDACANDBED 10/20/17 11:30 GLUCOSE POC LAB TO COLLECT [POC] QIDACANDBED 10/20/17 16:30 GLUCOSE POC LAB TO COLLECT [POC] QIDACANDBED - Plan Plan:: ASSESSMENT AND PLAN - Acute bronchitis with hypoxic respiratory failure and acute COPD exacerbation - clinically improving but still requiring supplemental oxygen. Still somewhat symptomatic with activity. I think she would benefit from one additional night of inpatient management prior to discharge home if she continues this current trend towards improvement. -Antibiotic coverage with azithromycin and cefdinir -Continue prednisone -Scheduled and as needed nebulizers -Cough suppressants -Supplement oxygen Tobacco dependence - patient is interested in quitting at this time. Nicotine patch provided during the hospital stay. Cessation information will be offered as indicated. Anxiety with depression - stable. -Continue home meds Essential hypertension - blood pressure acceptable. -Continue home medications Maintenance issues - - DVT prophylaxis - mechanical - GI prophylaxis - not indicated - Nutrition - regular diet Disposition - anticipate discharge to home after the hospital stay, hopefully tomorrow Kevin Moran M.D.
[2017-10-16] MEDS: oxyCODONE 5 MG Tab PO PRN ×2 (11:38→18:48)
[2017-10-16] MEDS: Rosuvastatin 10 MG Tab PO SCH (21:15)
[2017-10-16] MEDS: Pramipexole 0.5 MG Tab PO SCH (21:16)
[2017-10-16] MEDS: traZODone 50 MG Tab PO SCH (21:17)
[2017-10-16] MEDS: Cefdinir 300 MG Cap PO SCH (21:17)
[2017-10-16] MEDS: Escitalopram 20 MG Tab PO SCH (21:18)
[2017-10-17] MEDS: Albuterol/Ipratropium 3.0-0.5 MG/3 ML Neb Soln NEB SCH ×2 (07:21→10:32)
[2017-10-17] MEDS: Formoterol/Mometasone 100-5 MCG 8.8 GM Inhaler IH SCH (07:22)
[2017-10-17 07:36] VITALS: BP 132/73
[2017-10-17] MEDS: Aspirin 81 MG Tab.EC PO SCH (08:14)
[2017-10-17] MEDS: Cefdinir 300 MG Cap PO SCH (08:14)
[2017-10-17] MEDS: predniSONE 20 MG Tab PO SCH (08:15)
[2017-10-17] MEDS: Azithromycin 250 MG Tab PO SCH (08:15)
[2017-10-17] MEDS: Lisinopril 10 MG Tab PO SCH (08:15)
[2017-10-17] MEDS: oxyCODONE 5 MG Tab PO PRN (08:21)
--- NOTE | 2017-10-17 09:54 | PCM.DCSUM1 ---
Discharge Summary - Hospital Course Brief History: 72-year-old female with history of COPD, tobacco dependence and chronic back pain who presented with progressive cough and shortness of breath. She was admitted for management of acute bronchitis with an exacerbation of COPD. Diagnosis: Stroke: No - Discharge Data Discharge Date: 10/17/17 Discharge Disposition: Home, Self-Care 01 Condition: Good - Discharge Diagnosis/Problem(s) (1) Acute bronchitis SNOMED Code(s): 99081529 ICD Code: J20.9 - ACUTE BRONCHITIS, UNSPECIFIED Status: Acute Current Visit: Yes Qualifiers: Bronchitis organism: unspecified organism Qualified Code(s): J20.9 - Acute bronchitis, unspecified (2) COPD with acute exacerbation SNOMED Code(s): 838412801 ICD Code: J44.1 - CHRONIC OBSTRUCTIVE PULMONARY DISEASE W (ACUTE) EXACERBATION Status: Acute Priority: Medium Current Visit: Yes (3) Acute respiratory failure with hypoxia SNOMED Code(s): 82972263, 004276674 ICD Code: J96.01 - ACUTE RESPIRATORY FAILURE WITH HYPOXIA Status: Acute Current Visit: Yes (4) Tobacco dependence SNOMED Code(s): 98702047 ICD Code: F17.200 - NICOTINE DEPENDENCE, UNSPECIFIED, UNCOMPLICATED Status : Acute Current Visit: Yes - Patient Summary/Data Hospital Course: Tiffanie presented to the emergency room with progressive cough and shortness of breath. Workup in the emergency room was suggestive of acute bronchitis with hypoxic respiratory failure and a COPD exacerbation. She was started on ceftriaxone, azithromycin and steroids and admitted to the hospital for further management. Over the next couple of days she had resolution of fevers and slow but steady improvement in her symptoms. Shortness of breath and exercise tolerance slowly improved throughout the course of the hospital stay. Cough has become loose and occasionally has trouble some coughing spells but in general has done very well and improved fairly quickly. She is tolerating the medications well including the transition to oral prednisone and oral antibiotics. She has improved to the point that she feels comfortable at home. She does have home oxygen and will be utilizing this at night as well as during the day for a short while. She will need 3 additional doses of steroids and 3 to have additional days of antibiotic therapy. She did have some mild steroid- induced hyperglycemia during the hospital stay but this has improved and should continue to improve as her prednisone is discontinued. She will be discharged home with antibiotics, steroids as well as cough suppressants. She should follow -up early next week to ensure that she continues to improve. - Patient Instructions Diet: Regular Diet as Tolerated Activity: As Tolerated Showering/Bathing: May Shower Notify Provider of: Fever, Increased Pain, Nausea and/or Vomiting Other/Special Instructions: 1. You were in the hospital for management of acute bronchitis with an acute exacerbation of COPD. You have been improving with antibiotic and steroid therapy. I recommend additional treatment as outlined below: --Prednisone 20 mg twice daily with meals, your next dose is due this evening. --Azithromycin 500 mg once daily in the morning, your next dose is due tomorrow. --Cefdinir 300 mg twice daily with food, your next dose is due tonight. Additional management will include: --Robitussin-AC 10 mL every 4 hours as needed for cough. --Benzonatate 100 mg 3 times daily as needed for cough. --Continue to use her home oxygen as needed to keep her oxygen saturations greater than 90%. --use your nebulizer 4 times daily and your inhaler as needed in between. 2. Continue your other home medications as previously prescribed. Please resume your usual prednisone dosing after the increased dose of prednisone is complete tomorrow. 3. Please seek medical attention if you develop fever greater than 101, have sudden onset of shortness of breath or if you develop persistent vomiting or diarrhea. - Discharge Plan Prescriptions/Med Rec: Azithromycin 500 mg PO DAILY #3 tablet Benzonatate 100 mg PO TID PRN #20 capsule PRN Reason: Cough Cefdinir [Omnicef] 300 mg PO BID #7 cap Codeine/guaiFENesin [Robitussin AC] 10 ml PO Q4H PRN #236 ml PRN Reason: Cough predniSONE 20 mg PO BIDMEALS #3 tablet Home Medications: Home Meds Escitalopram [Lexapro] 20 mg PO DAILY 01/06/13 [History] Fluticasone/Salmeterol [Advair 100-50] 1 puff INH BID 01/06/13 [History] Lisinopril [Prinivil] 10 mg PO DAILY 01/06/13 [History] Multivitamin [Multiple Vitamins] 1 tab PO DAILY 01/06/13 [History] Pramipexole [Mirapex] 1 mg PO BEDTIME 01/06/13 [History] traZODone 200 mg PO BEDTIME 01/06/13 [History] Aspirin [Halfprin] 81 mg PO DAILY 09/13/14 [History] Vitamin A 8,000 unit PO DAILY 01/19/17 [History] Albuterol Sulfate [Proair Hfa] 1 - 2 puff IH QID PRN 01/21/17 [History] Albuterol [Proventil Neb Soln] 3 ml IH QID PRN 01/21/17 [History] Cholecalciferol (Vitamin D3) [Vitamin D3] 2,000 unit PO DAILY 01/21/17 [History] Rosuvastatin [Crestor] 5 mg PO BEDTIME 01/21/17 [History] oxyCODONE 1 tab PO Q4H PRN 10/14/17 [History] Azithromycin 500 mg PO DAILY #3 tablet 10/17/17 [Rx] Benzonatate 100 mg PO TID PRN #20 capsule 10/17/17 [Rx] Cefdinir [Omnicef] 300 mg PO BID #7 cap 10/17/17 [Rx] Codeine/guaiFENesin [Robitussin AC] 10 ml PO Q4H PRN #236 ml 10/17/17 [Rx] predniSONE 20 mg PO BIDMEALS #3 tablet 10/17/17 [Rx] Patient Handouts: Coping with Quitting Smoking, Chronic Obstructive Pulmonary Disease Exacerbation, Steps to Quit Smoking Referrals: Prem Casanova MD [Primary Care Provider] - 10/21/17 10:20 am (3-5 days - f/u hospital stay for acute bronchitis and copd exacerbation) - Patient Data Vitals - Most Recent: Last Vital Signs Temp 36.1 C 10/17/17 07:00 Pulse 79 10/17/17 07:23 Resp 18 10/17/17 07:00 BP 132/73 10/17/17 08:15 Pulse Ox 97 10/17/17 07:23 Weight - Most Recent: 58.423 kg I&O - Last 24 hours: Intake & Output 10/16/17 10/17/17 10/17/17 22:59 06:59 14:59 Intake Total 800 650 Balance 800 650 Lab Results - Last 24 hrs: Laboratory Results - last 24 hr 10/17/17 Range/Units 05:44 WBC 10.5 (4.5-11.0) K/uL RBC 4.30 (3.30-5.50) M/uL Hgb 13.3 (12.0-15.0) g/dL Hct 41.0 (36.0-48.0) % MCV 95 (80-98) fL MCH 31 (27-31) pg MCHC 32 (32-36) % Plt Count 210 (150-400) K/uL NIC Results - Last 24 hrs: Microbiology 10/14/17 14:00 Aerobic Blood Culture - Preliminary Blood - Venous - Lab Draw NO GROWTH AFTER 2 DAYS Anaerobic Blood Culture - Preliminary NO GROWTH AFTER 2 DAYS 10/14/17 13:55 Aerobic Blood Culture - Preliminary Blood - Arm, Left NO GROWTH AFTER 2 DAYS Anaerobic Blood Culture - Preliminary NO GROWTH AFTER 2 DAYS Med Orders - Current: Current Medications Acetaminophen (Tylenol) 650 mg PO Q4H PRN PRN Reason: Pain (Mild 1-3)/fever Albuterol (Proventil Neb Soln) 2.5 mg NEB Q4H PRN PRN Reason: Shortness Of Breath/wheezing Last Admin: 10/16/17 04:04 Dose: 2.5 mg Albuterol/Ipratropium (Duoneb 3.0-0.5 Mg/3 Ml) 3 ml NEB QIDRT [facility] Last Admin: 10/17/17 07:21 Dose: 3 ml Aspirin (Halfprin) 81 mg PO DAILY [facility] Last Admin: 10/17/17 08:14 Dose: 81 mg Azithromycin (Zithromax) 500 mg PO DAILY [facility] Last Admin: 10/17/17 08:15 Dose: 500 mg Benzonatate (Tessalon Perles) 100 mg PO TID PRN PRN Reason: Cough Last Admin: 10/16/17 05:57 Dose: 100 mg Cefdinir (Omnicef) 300 mg PO BID [facility] Last Admin: 10/17/17 08:14 Dose: 300 mg Escitalopram Oxalate (Lexapro) 20 mg PO BEDTIME [facility] Last Admin: 10/16/17 21:18 Dose: 20 mg Guaifenesin/Codeine Phosphate (Robitussin Ac) 10 ml PO Q4H PRN PRN Reason: Cough Last Admin: 10/16/17 21:40 Dose: 10 ml Ibuprofen (Motrin) 600 mg PO Q6H PRN PRN Reason: Pain/Fever Insulin Aspart (Novolog) 0 unit SUBCUT QIDACANDBED [facility]; Protocol Last Admin: 10/16/17 21:12 Dose: 2 units Lisinopril (Prinivil) 10 mg PO DAILY [facility] Last Admin: 10/17/17 08:15 Dose: 10 mg Magnesium Hydroxide (Milk Of Magnesia) 30 ml PO Q12H PRN PRN Reason: Constipation Last Admin: 10/15/17 08:02 Dose: 30 ml Mometasone Furoate/Formoterol Fumar (Dulera 100-5 Mcg) 2 puff IH BIDRT [facility] Last Admin: 10/17/17 07:22 Dose: 2 puff Nicotine (Habitrol) 21 mg TRDERM DAILY [facility] Last Admin: 10/16/17 08:41 Dose: 21 mg Ondansetron HCl (Zofran Odt) 4 mg PO Q6H PRN PRN Reason: Nausea able to take PO Oxycodone HCl (Oxycodone) 5 mg PO Q4H PRN PRN Reason: Pain Last Admin: 10/17/17 08:21 Dose: 5 mg Polyethylene Glycol (Miralax) 17 gm PO DAILY PRN PRN Reason: Constipation Pramipexole Dihydrochloride (Mirapex) 1 mg PO BEDTIME [facility] Last Admin: 10/16/17 21:16 Dose: 1 mg Prednisone (Prednisone) 20 mg PO BIDMEALS [facility] Last Admin: 10/17/17 08:15 Dose: 20 mg Rosuvastatin Calcium (Crestor) 5 mg PO BEDTIME [facility] Last Admin: 10/16/17 21:15 Dose: Not Given Senna/Docusate Sodium (Senna Plus) 1 tab PO BID PRN PRN Reason: Constipation Last Admin: 10/15/17 19:35 Dose: 1 tab Trazodone HCl (Trazodone) 200 mg PO BEDTIME [facility] Last Admin: 10/16/17 21:17 Dose: 200 mg Discontinued Medications Acetaminophen (Tylenol Extra Strength) 1,000 mg PO Q12H PRN PRN Reason: Pain Last Admin: 10/14/17 14:13 Dose: 1,000 mg Albuterol/Ipratropium (Duoneb 3.0-0.5 Mg/3 Ml) 3 ml NEB ONETIME ONE Stop: 10/14/17 13:37 Last Admin: 10/14/17 13:49 Dose: 3 ml Lactated Ringer's (Ringers, Lactated) 1,000 mls @ 999 mls/hr IV ASDIRECTED [facility] Last Admin: 10/14/17 14:35 Dose: 999 mls/hr Azithromycin 500 mg/ Sodium (Chloride) 250 mls @ 250 mls/hr IV Q24H [facility] Last Admin: 10/14/17 14:35 Dose: 250 mls/hr Ceftriaxone Sodium 2 gm/ (Sodium Chloride) 50 mls @ 100 mls/hr IV Q24H [facility] Last Admin: 10/14/17 14:02 Dose: 100 mls/hr Ceftriaxone Sodium 2 gm/ (Sodium Chloride) 50 mls @ 100 mls/hr IV Q24H [facility] Last Admin: 10/15/17 14:17 Dose: 100 mls/hr Magnesium Sulfate 2 gm/ Premix 50 mls @ 25 mls/hr IV Q6H [facility] Stop: 10/15/17 16:59 Last Admin: 10/15/17 14:24 Dose: 25 mls/hr Methylprednisolone Sodium Succinate (Solu-Medrol) 125 mg IVPUSH ONETIME ONE Stop: 10/14/17 14:44 Last Admin: 10/14/17 15:12 Dose: 125 mg Methylprednisolone Sodium Succinate (Solu-Medrol) 62.5 mg IVPUSH ONETIME ONE Stop: 10/14/17 23:01 Last Admin: 10/14/17 22:03 Dose: 62.5 mg - Exam Quality Assessment: Reports: Supplemental Oxygen General: Reports: Alert, Oriented, Cooperative, No Acute Distress Neck: Reports: Supple Lungs: Reports: Clear to Auscultation, Normal Respiratory Effort. Denies: Wheezing Cardiovascular: Reports: Regular Rate, Regular Rhythm Extremities: No Pedal Edema Psy/Mental Status: Reports: Alert, Normal Affect
[2017-10-17] MEDS: Nicotine 21 MG/24 Hr Patch TRDERM SCH (10:00)
== END 2017-10-17 11:15 | disposition home or self-care (01) | DRG 190 ==
LOC: JP.ED 13:17 → JP.2SS 14:44
PROVIDERS: ADMIT Internal Medicine; ATTEND Internal Medicine
DX: J44.0 Chronic obstructive pulmonary disease with (acute) lower respiratory infection (principal); J96.01 Acute respiratory failure with hypoxia; J20.9 Acute bronchitis, unspecified; J44.1 Chronic obstructive pulmonary disease with (acute) exacerbation; F17.210 Nicotine dependence, cigarettes, uncomplicated; I10 Essential (primary) hypertension; Z99.81 Dependence on supplemental oxygen; R51 Headache; R06.02 Shortness of breath; R50.9 Fever, unspecified; E78.00 Pure hypercholesterolemia, unspecified; F32.9 Major depressive disorder, single episode, unspecified; F41.9 Anxiety disorder, unspecified; Z85.42 Personal history of malignant neoplasm of other parts of uterus; M19.90 Unspecified osteoarthritis, unspecified site; M54.9 Dorsalgia, unspecified; G89.29 Other chronic pain; Z87.01 Personal history of pneumonia (recurrent); H54.7 Unspecified visual loss; Z79.82 Long term (current) use of aspirin; Z88.8 Allergy status to other drugs, medicaments and biological substances; Z79.52 Long term (current) use of systemic steroids
CPT/HCPCS: 36415; 71045 ×2; 80053; 83605; 84484; 85025; 86140; 87040 ×2; 94640; 96365; 96375; 99285; A9270; J0456; J0696; J7050 ×2; J7120; J7620; 80048; 82962; 83735; 85027; J2930; J3475

== ENCOUNTER 2017-12-28 16:54 | Emergency (ER) | payer MEDICARE ==
[2017-12-28 17:12] VITALS: BP 114/65
--- NOTE | 2017-12-28 17:37 | EDM.PDOC ---
ED HPI GENERAL MEDICAL PROBLEM - General Chief Complaint: Back Pain or Injury Stated Complaint: BACK PAIN Time Seen by Provider: 12/28/17 17:20 Source of Information: Reports: Patient, Old Records, RN History Limitations: Reports: Other (incomplete records) - History of Present Illness INITIAL COMMENTS - FREE TEXT/NARRATIVE: 72 yo female with chronic low back pain had a procedure done to try to eliminate the pain at a pain clinic in [place] a couple weeks ago. So far she has not gotten any relief. She saw her primary on Friday who only offered her nausea medicine which is helping the nausea, but not the pain. She tried to call the pain clinic, but was not able to get through to the doctor. Denies bowel or bladder incontinence. No fever. No redness in area of injection. Onset: Unknown/Unsure (chronic) Duration: Chronic Location: Reports: Back Quality: Reports: Ache Severity: Moderate Improves with: Reports: None Worsens with: Reports: None Context: Reports: Other (chronic low back pain) Associated Symptoms: Reports: No Other Symptoms Treatments [employer]: Reports: Other (see below) (none) - Related Data Allergies Allergy/AdvReac Type Severity Reaction Status Date / Time Iodinated Contrast- Oral and Allergy Itching Verified 12/28/17 17:27 IV Dye mold Allergy Shortness Verified 12/28/17 17:27 of Breath pravastatin Allergy Other Verified 10/14/17 14:06 simvastatin Allergy Confusion Verified 10/14/17 14:06 Home Meds: Home Meds Fluticasone/Salmeterol [Advair 100-50] 1 puff INH BID 01/06/13 [History] Lisinopril [Prinivil] 10 mg PO DAILY 01/06/13 [History] Multivitamin [Multiple Vitamins] 1 tab PO DAILY 01/06/13 [History] Pramipexole [Mirapex] 1 mg PO BEDTIME 01/06/13 [History] traZODone 200 mg PO BEDTIME 01/06/13 [History] Aspirin [Halfprin] 81 mg PO DAILY 09/13/14 [History] Vitamin A 8,000 unit PO DAILY 01/19/17 [History] Albuterol Sulfate [Proair Hfa] 1 - 2 puff IH QID PRN 01/21/17 [History] Albuterol [Proventil Neb Soln] 3 ml IH QID PRN 01/21/17 [History] Cholecalciferol (Vitamin D3) [Vitamin D3] 2,000 unit PO DAILY 01/21/17 [History] Rosuvastatin [Crestor] 5 mg PO BEDTIME 01/21/17 [History] oxyCODONE 1 tab PO Q4H PRN 10/14/17 [History] predniSONE 20 mg PO BIDMEALS #3 tablet 10/17/17 [Rx] Escitalopram [Lexapro] 20 mg PO DAILY 12/28/17 [History] Past Medical History HEENT History: Reports: Impaired Vision Cardiovascular History: Reports: High Cholesterol, Hypertension, SOB on Exertion Other Cardiovascular History: states she has had surface blood clots and was told not to worry about them Respiratory History: Reports: Bronchitis, Recurrent, COPD, Pneumonia, Recurrent , Sleep Apnea, SOB Gastrointestinal History: Reports: Colon Polyp, GERD, Irritable Bowel Syndrome Genitourinary History: Reports: None 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 Sciatic injection by Dr. Myrtle Langston, [place] 7 days ago. glut. max problems Neurological History: Reports: Migraines, Other (See Below) Other Neuro History: Restless leg syndrome Psychiatric History: Reports: Anxiety, Depression Oncologic (Cancer) History: Reports: Squamous Cell Carcinoma, Uterine - Infectious Disease History Infectious Disease History: Reports: Chicken Pox - Past Surgical History Head Surgeries/Procedures: Reports: None HEENT Surgical History: Reports: Adenoidectomy, Tonsillectomy Cardiovascular Surgical History: Reports: None Respiratory Surgical History: Reports: None GI Surgical History: Reports: Appendectomy, Cholecystectomy, Colonoscopy Female Surgical History: Reports: Hysterectomy, Oophorectomy Neurological Surgical History: Reports: Lumbar Spine Musculoskeletal Surgical History: Reports: None Oncologic Surgical History: Reports: None Dermatological Surgical History: Reports: Skin Biopsy Social & Family History - Family History Family Medical History: Noncontributory - Caffeine Use Caffeine Use: Reports: Coffee - Living Situation & Occupation Living situation: Reports: Alone Occupation: Employed ED ROS GENERAL - Review of Systems Review Of Systems: See Below Constitutional: Reports: No Symptoms Respiratory: Reports: No Symptoms Cardiovascular: Reports: No Symptoms GI/Abdominal: Reports: No Symptoms : Reports: No Symptoms Musculoskeletal: Reports: Back Pain Skin: Reports: No Symptoms Neurological: Reports: No Symptoms ED EXAM,LOWER BACK PAIN/INJURY - Physical Exam Exam: See Below Exam Limited By: No Limitations General Appearance: Alert, WD/WN, No Apparent Distress Back Exam: Normal Inspection Extremities: Normal Inspection, Normal Range of Motion, Non-Tender, No Pedal Edema Neurological: Alert, Normal Mood/Affect, CN II-XII Intact, Normal Gait, No Motor /Sensory Deficits, Oriented x 3 Psychiatric: Normal Affect, Normal Mood Skin Exam: Warm, Dry, Intact, Normal Color, No Rash Course - Vital Signs Last Recorded V/S: Last Vital Signs Temp 36.5 C 12/28/17 17:11 Pulse 94 12/28/17 17:11 Resp 16 12/28/17 17:11 BP 114/65 12/28/17 17:11 Pulse Ox 94 L 12/28/17 17:11 Departure - Departure Time of Disposition: 17:36 Disposition: Home, Self-Care 01 Condition: Fair Clinical Impression: Chronic low back pain Qualifiers: Back pain laterality: right Sciatica presence: with sciatica Sciatica laterality: sciatica of right side Qualified Code(s): M54.41 - Lumbago with sciatica, right side; G89.29 - Other chronic pain - Discharge Information *PRESCRIPTION DRUG MONITORING PROGRAM REVIEWED*: Yes *COPY OF PRESCRIPTION DRUG MONITORING REPORT IN PATIENT LEEANN: No Instructions: What You Need to Know About Chronic Back Pain Referrals: Prem Casanova MD [Primary Care Provider] - Additional Instructions: Try Percocet for your pain. Contact your doctor(s) tomorrow about your situation.
== END 2017-12-28 17:54 | disposition home or self-care (01) ==
LOC: JP.ED 16:54
DX: M54.41 Lumbago with sciatica, right side (principal); I10 Essential (primary) hypertension; E78.00 Pure hypercholesterolemia, unspecified; Z79.82 Long term (current) use of aspirin; Z79.899 Other long term (current) drug therapy; Z91.041 Radiographic dye allergy status
CPT/HCPCS: 99283